=== PATIENT | male | born 1955 | race Caucasian/White ===

== ENCOUNTER → 2016-05-30 | Outpatient (CLI) | payer OTHER ==
[2016-05-30 10:36] LABS: EKG EKG PERFORMED
--- NOTE | 2016-05-30 11:44 | XR ---
EXAMINATION TYPE: XR chest 2V DATE OF EXAM: 05/30/2016 11:22 AM HISTORY: Preoperative clearance. REFERENCE: NONE. FINDINGS: A pain stimulator projects over the lower dorsal spine. There is a moderate levoscoliosis. The lungs are clear. Pleural spaces are clear. Heart size is normal. There is hypertrophic spondylosi s within the dorsal spine. IMPRESSION: 1. NO ACUTE INTRATHORACIC ABNORMALITY. 2. DEGENERATIVE CHANGES, DORSAL SPINE.
[2016-05-30 11:56] LABS: Anion Gap 11 mmol/L; Carbon Dioxide 25 mmol/L (22-30); Chloride 105 mmol/L (98-107); Potassium 4.7 mmol/L (3.5-5.1); Sodium 141 mmol/L (137-145)
[2016-05-30 12:03] LABS: Prothrombin Time 9.9 sec (9.0-12.0)
[2016-05-30 12:05] LABS: Basophils # (A) 0.1 k/uL (0-0.2); Basophils % (A) 1 %; CH 31.7; CHCM 33.8; Eosinophils # (A) 0.3 k/uL (0-0.7); Eosinophils % (A) 3 %; HCT 44.6 % (39.0-53.0); HDW 2.81; HGB 14.8 gm/dL (13.0-17.5); Luc # (Auto) 0.15; Luc % (Auto) 2; Lymphocytes # (A) 2.1 k/uL (1.0-4.8); Lymphocytes % (A) 22 %; MCH 31.3 pg (25.0-35.0); MCHC 33.2 g/dL (31.0-37.0); MCV 94.3 fL (80.0-100.0); Mean Platelet Volume 9.1; Monocytes # (A) 0.5 k/uL (0-1.0); Monocytes % (A) 5 %; Neutrophils # (A) 6.6 k/uL (1.3-7.7); Neutrophils % (A) 68 %; RBC 4.73 m/uL (4.30-5.90); RDW 13.6 % (11.5-15.5); WBC 9.7 k/uL (3.8-10.6); WBC (Perox) 9.73
== END | disposition home or self-care (01) ==
LOC: LABPAT 10:20
PROVIDERS: ATTEND Orthopaedic Surgery
DX: Z01.818 Encounter for other preprocedural examination (principal); Z01.812 Encounter for preprocedural laboratory examination; M17.12 Unilateral primary osteoarthritis, left knee; Z51.81 Encounter for therapeutic drug level monitoring; Z79.01 Long term (current) use of anticoagulants
CPT/HCPCS: 71020; 80051; 85025; 85610; 85730; 87070; 93005

== ENCOUNTER 2016-06-08 06:34 | Inpatient (IN) | payer OTHER ==
[2016-06-06 08:50] VITALS: BMI 26.0
--- NOTE | 2016-06-07 09:49 | HP ---
DATE OF ADMISSION: CHIEF COMPLAINT: Left knee pain. HISTORY OF PRESENT ILLNESS: The patient is a 60-year-old, self-employed male who presents with progressive left knee pain secondary to osteoarthrosis, despite extensive conservative measures. He had a previous arthroscopy. In addition, has had multiple injections and tried multiple medications. He is having pain that limits his normal function and activities. PAST MEDICAL HISTORY: Significant for arthritis. PAST SURGICAL HISTORY: Significant for multiple right shoulder surgeries, in addition to multiple lumbar spine surgeries. He has had a previous nerve stimulator implanted. Current medications include cholesterol medication. He denies drug allergies. Family history is negative. SOCIAL HISTORY: Negative for current tobacco or alcohol use. A 16-point review of systems otherwise reviewed and is noncontributory. On examination, the patient is approximately 6 foot tall, 192 pounds of mesomorphic habitus. HEENT exam is nonfocal. Neck is supple. He is nontender about the lumbar spine. He has painless passive motion of his left hip. Straight leg raise is negative. Active motion left knee, -4 to 135 degrees of flexion. He has a trace effusion. He is tender about the medial joint line. Collaterals are stable, Stanley is negative, Genny's elicits medial pain. He has genu varum alignment. His distal neurovascular exam appears to be intact in the left lower extremity. Previous x-rays to include weight-bearing, notch, lateral, and merchant views of the left knee obtained in the office show moderate to severe medial compartment osteoarthrosis. IMPRESSION: Left knee severe medial compartment osteoarthrosis. RECOMMENDATIONS: I talked to the patient at length regarding his treatment options. At this point, he is having significant pain and limitation because of pain related to his osteoarthrosis. After thorough discussion, he opts to proceed with surgery. We will plan to proceed with potential left knee medial compartment arthroplasty versus total knee arthroplasty. Risks and benefits are discussed at length in layman's terms. We will institute DVT prophylaxis postoperatively.
[~2016-06-08 06:34] MED LIST: ACETAMINOPHEN TAB 500 MG TAB PO ONE; DEXAMETHASONE SOD PHOSPHATE 10 MG/ML 1 ML VIAL IV ONE; MELOXICAM 7.5 MG TAB PO ONE; MIDAZOLAM 2 MG/2 ML VIAL IV PRN; ONDANSETRON 4 MG/2 ML VIAL IVP ONE; SCOPOLAMINE 1.5MG/72HR PATCH TRANSDERM ONE; TRANEXAMIC ACID 1,000 MG in SODIUM CHLORIDE 0.9% 100 ML IVPB ONE; ceFAZolin 2 GM in SODIUM CHLORIDE 0.9% 100 ML IVPB ONE; fentaNYL (PF) 50 MCG/ML 2 ML AMP IV PRN
[2016-06-08] MEDS: LACTATED RINGERS 1,000 ML IV SCH ×2 (07:19→23:22)
[2016-06-08] MEDS ORDERED: fentaNYL (PF) 50 MCG/ML 2 ML AMP IV ONE (07:20)
[2016-06-08] MEDS ORDERED: MIDAZOLAM 2 MG/2 ML VIAL IVP ONE (07:25)
[2016-06-08] MEDS ORDERED: ROPIVACAINE 1,100 MG, SODIUM CHLORIDE 0.9% 330 ML MISCELLANE PRN ×2 (07:51)
--- NOTE | 2016-06-08 07:51 | P.ONQ ---
Anesthesiology Proc Note - PNB - Peripheral Nerve Block Performed Left Adductor Canal Infusion Time Out Performed: Yes Procedure Start Time: :20 Procedure Stop Time: 07:30 Indication: Acute Post-Operative Pain, Analgesia Sedation Type: Sedate with meaningful contact maintained Preparation: Sterile Dressing Position: Supine Catheter Depth at Skin (cm): 8 Catheter: Indwelling Needle Types: On-Q Needle Size: 100mm (4") Needle Gauge: 18 Technique: Ultrasound Injectate: 0.5% Ropivacaine (see comment for volume) Blood Aspirated: No Pain Paresthesia on Injection Noted: No Resistance on Injection: Normal Events: Uneventful and Well Tolerated
[2016-06-08] MEDS ORDERED: SUCCINYLCHOLINE CHLORIDE 100 MG/5 ML SYR IV ONE (08:00)
[2016-06-08] MEDS ORDERED: LIDOCAINE 1% INJ 10MG/ML (20 ML MDV) ONE (08:00)
[2016-06-08] MEDS ORDERED: ROCURONIUM BROMIDE 10 MG/ML 10 ML VIAL IV ONE (08:00)
[2016-06-08] MEDS ORDERED: GLYCOPYRROLATE 0.2 MG/ML 2 ML VIAL ONE (08:00)
[2016-06-08] MEDS ORDERED: MIDAZOLAM 2 MG/2 ML VIAL ONE (08:00)
[2016-06-08] MEDS ORDERED: fentaNYL (PF) 50 MCG/ML 2 ML AMP ONE (08:00)
[2016-06-08] MEDS ORDERED: PROPOFOL 10 MG/ML 20 ML VIAL IV ONE (08:00)
[2016-06-08] MEDS ORDERED: NEOSTIGMINE 1 MG/ML 10 ML VIAL ONE (08:00)
[2016-06-08] MEDS ORDERED: ePHEDrine 50 MG/ML 1 ML AMP ONE (08:00)
[2016-06-08] MEDS ORDERED: ceFAZolin 3,000 MG in SODIUM CHLORIDE 0.9% IRRIGATIO 3,000 ML IRRIGATION ONE (08:35)
[2016-06-08] MEDS ORDERED: LACTATED RINGERS 1,000 ML IV ONE ×2 (08:36→10:00)
[2016-06-08] MEDS ORDERED: ROPIVACAINE 246.25 MG, EPINEPHrine 0.5 MG, KETOROLAC 30 MG, cloNIDine HCL/PF 80 MCG, WA... MISCELLANE ONE ×5 (08:46)
[2016-06-08] MEDS ORDERED: ONDANSETRON 4 MG/2 ML VIAL IVP PRN (09:56)
[2016-06-08] MEDS ORDERED: MAGNESIUM HYDROXIDE 2,400 MG/10 ML CUP PO PRN (09:56)
[2016-06-08] MEDS ORDERED: NALOXONE 0.4 MG/ML 1 ML VIAL IV PRN (09:56)
[2016-06-08] MEDS ORDERED: HYDROmorphone 1 MG/ML 1 ML SYRINGE IVP PRN ×2 (09:56)
[2016-06-08] MEDS ORDERED: traMADol 50 MG TAB PO PRN (09:56)
[2016-06-08] MEDS ORDERED: oxyCODONE-APAP 7.5-325MG 1 EACH TAB PO PRN (09:59)
--- NOTE | 2016-06-08 10:01 | P.DS ---
Providers Date of admission: 06/08/16 06:34 Attending physician: Kevin Ramírez Consults: 06/08/16 09:56 Consult Physician Routine Consulting Provider: Mario Nelson Consult Reason/Comments: Medical management Do you want consulting provider notified?: Yes Primary care physician: Mario Nelson Hospital Course: Date of admission: 06/08/2016 Date of discharge: 06/09/2016 Admission diagnosis: Status post left total knee arthroplasty Discharge diagnosis: Same Attending physician: Dr. Ramírez Surgical procedures: Left total knee arthroplasty Brief history: Patient is a 60-year-old male with a history of progressive primary left knee osteoarthritis. At this point patient has failed conservative treatment measures and has opted to proceed with a elective left total knee arthroplasty. Hospital course: Details of patient's surgery can be found in operative report. Patient tolerated the procedure well and was subsequently transported to orthopedic floor. Patient's orthopeidc and medical care was provided daily. Patient had daily laboratory tests performed for evaluation of overall blood counts. Patient had daily physical therapy to include strengthening range of motion as well as education with walker ambulation. Patient had daily CPM usage as part of their physical therapy program Patient was treated with Xarelto for their postoperative DVT prophylaxis during their inpatient stay. Patient was noted to have a relatively uneventful postoperative course. Patient reported satisfactory pain control with oral pain medications by postoperative day 0. Patient showed satisfactory progress with physical therapy. Patient moved steadily through the program and had no difficulty meeting the goals by postoperative day 1. Given patient's otherwise satisfactory course and having met physical therapy goals, plan is to discharge patient [home] on postoperative day 1. Discharge condition/disposition: Patient will be discharged home in stable condition. Discharge medications: Instructions are given on resumption of patient's normal daily medications per primary care recommendation, in addition patient will be prescribed Percocet 7.5mg/325mg, aspirin 650mg Discharge instructions: 1. Wound care and infection precautions keep incision dry and covered while showerin, no lotions, creams, moisturizers. No soaking, tubs, pools, hottubs. Do not scrub over the incision. 2. Weight-bear as tolerated with walker / cane until follow-up. 3. Ice and elevate when necessary. Do not exceed 20 minutes per hour with ice pack. 4. Utilize compression sleeve until seen at first follow up appointment. 5. Visiting nursing care. 6. Home physical therapy including home CPM. 7. Pain meds and anticoagulants per prescription. 8. Pain medication has potential to cause constipation. Increase oral fluid and fiber intake. Contact primary care provider if you have not had a bowel movement within 48 hours after discharge 9. No anti-inflammatory medication until discussed at first post operative visit, this including Motrin, Aleve, Mobic, Diclofenac. 10. Follow up in office at 2 weeks postop with Jose Rojas PA-C 11. Follow up with your primary care doctor 7-10 days after discharge. 12. Contact [facility] with any questions, . Procedures: Left total knee arthroplasty Patient Condition at Discharge: Good Plan - Discharge Summary New Discharge Prescriptions: Aspirin EC [Ecotrin] 650 mg PO BID #60 tablet. oxyCODONE-APAP 7.5-325MG [Percocet 7.5-325 mg] 1 tab PO Q6HR PRN #60 tab PRN Reason: Pain Discharge Medication List Atorvastatin [Lipitor] 20 mg PO HS 06/06/16 [History] oxyCODONE-APAP 7.5-325MG [Percocet 7.5-325 mg] 1 tab PO Q6HR PRN #60 tab [Rx] Aspirin EC [Ecotrin] 650 mg PO BID #60 tablet. 06/09/16 [Rx] Follow up Appointment(s)/Referral(s): Marty Rojas PAC [PHYSICIAN GYRO MECHANIC] - 2 Weeks (Office is currently closed, please call to make an appointment on Saturday) Patient Instructions/Handouts: Knee Replacement (DC) Activity/Diet/Wound Care/Special Instructions: Orthopedic Discharge Instructions: 1. Wound care and infection precautions, keep incision dry and covered while showering, no lotions, creams, moisturizers. No soaking, pools, hot tubs. Do not scrub over incision. 2. Weight-bear as tolerated with walker / cane until follow-up. 3. Ice and elevate when necessary. Do not exceed 20 minutes per hour with ice pack. 4. Utilize compression sleeve until seen at first follow up appointment. 5. Visiting nursing care. 6. Home physical therapy including home CPM. 7. Pain meds and anticoagulants per prescription. 8. Pain medication has potential to cause constipation. Increase oral fluid and fiber intake. Contact primary care provider if you have not had a bowel movement within 48 hours after discharge. 9. No anti-inflammatory medication until discussed at first post operative visit, this including Motrin, Aleve, Mobic, Diclofenac. 10. Follow up in office at 2 weeks postop with Jose Rojas PA-C 11. Follow up with your primary care doctor 7-10 days after discharge. 12. Contact [facility] with any questions, . Discharge Disposition: HOME WITH HOME HEALTH SERVICES
--- NOTE | 2016-06-08 10:32 | P.OP ---
Date of Procedure: 06/08/16 Preoperative Diagnosis: Left knee severe tricompartmental osteoarthrosis Postoperative Diagnosis: Same Procedure(s) Performed: Left total knee arthroplasty-cruciate retaining-cemented Implants: Depuy Attune size 8 cemented femoral component, size 8 cemented tibial component , 9 mm articular surface, 38 mm cemented patellar component. This is a cruciate retaining implant. Anesthesia: GETA, regional, local Surgeon: Kevin Ramírez Commercial Illustrator #1: Marty Rojas Estimated Blood Loss (ml): 100 Pathology: other (Bone fragments) Condition: stable Disposition: PACU Indications for Procedure: The patient is a 60-year-old male presents with progressive left knee pain secondary to osteoporosis despite extensive conservative treatment. A discussion of the risks and benefits of continued conservative measures versus operative intervention was made with patient. He opted to proceed with surgery. Operative risks to include infection, neurovascular injury, development of blood clots, possible component loosening, possible component failure need for subsequent procedures was discussed. Operative options to include medial compartment arthroplasty versus total knee posterior was also discussed. I informed him this would be an intraoperative decision. Operative Findings: Severe medial compartment osteoarthrosis with grade 2/3 chondral changes involving the distal lateral femur and grade 3 chondral changes involving the medial patella facet. Description of Procedure: The patient was brought to the operating room, and after induction of general anesthesia the left lower extremity was prepped and draped in a normal fashion. The tourniquet was inflated to 270 mmHg. A longitudinal incision extending 3 finger breaths above the superior pole of the patella extending to the medial aspect the tibial tubercle was then made. The skin and subcutaneous tissues were divided sharply. Electrocautery was used for hemostasis. A medial parapatellar arthrotomy was performed. The medial soft tissues to include the superficial deep portions medial collateral ligament were elevated subperiosteally. The patella was everted and the knee flexed. I then inspected all 3 compartments. There was severe grade 3/4 chondral changes involving the medial compartment in addition to grade 2/3 chondral changes involving the lateral compartment and grade 3 chondral changes involving the patellofemoral articulation. It was elected to proceed with total knee arthroplasty at this point. The anterior cruciate ligament was sacrificed. Blunt retractors were placed. A starting hole was made in the distal femur 1 cm anterior to posterior cruciate ligament origin. An intramedullary guide was gently inserted planning on 5 valgus distal cut with 9 mm distal resection. The cutting block was pinned in place. The distal cut was then made. The posterior referencing sizing guide was utilized. 3 external rotation was built into the system and verified off the trans-epicondylar axis and the posterior condyles. I felt size 8 was most appropriate. The cutting block was pinned in place. The anterior, posterior, and chamfer cuts were then made. The bone fragments were removed. The guide was then utilized to perform a slot cut. The trial size a femoral component was placed and was fully seated. There was good anterior to posterior and medial to lateral fit. The distal peg holes were drilled. The trial component was removed. Attention was then paid towards preparing the proximal tibia. An extra medullary guide was utilized in line with the tibial shaft and second metatarsal distally. I planned on 7 of posterior slope. I planned on 2 mm resection from the medial compartment. The cutting block was pinned in place. The posterior cruciate ligament was protected with a retractor. The proximal tibial cut was made in the bone removed in one fragment. After resection I felt this was inadequate therefore an additional 2 mm was resected utilizing the cutting block. The tibia sized most appropriate size 8. The trial femoral and tibial components were placed along with a 9 mm articular surface. I was able to obtain full flexion and extension with good stability with varus and valgus stress. The remnants the medial and lateral menisci were excised the capsule junction. After several flexion and extension cycles, the tibial rotation was marked with electrocautery in line with the medial one third of the tibial tubercle. Attention was then paid towards preparing the patella. A patella reamer was utilized taking this down to 14 mm of bone stock. A good flush cut was made. The patella sized most appropriately 38 mm. The peg holes were drilled. The trial components placed. The knee was taken through range of motion. I had good patellofemoral tracking with no hands technique. The trial components were then removed. The posterior osteophytes off the distal femur were carefully removed with a curved osteotome. The tibia was prepared in the appropriate rotation with appropriate drill and keel punch. The flexion and extension gaps were checked and felt to be symmetric. The bony surfaces were prepared with pulsatile lavage and dried. Ropivacaine was injected into the soft tissues. The tibial component was then cemented in placed and was fully seated. Excess cement was removed. The femoral component was cemented in placed and was fully seated. Excess cement was removed. The trial 9 mm articular surface was placed and the knee was put in full extension. The patella component was cemented in placed and was fully seated. Excess cement was removed. After the cement had sufficiently hardened, the knee was again taken through range of motion. Again I was able to obtain full flexion and extension with good stability with varus valgus stress. The trial 9 mm articular surface was removed and the final one inserted. This was fully seated. Care was taken to avoid any soft tissue interposition. Pulsatile lavage was again utilized. The medial parapatellar arthrotomy was closed with # 2 Ethibond suture. The tourniquet was deflated with approximately 70 minutes total tourniquet time. Final hemostasis was obtained with electrocautery. A deep drain was placed exiting laterally. The subcu tissues were reapproximated with interrupted 2-0 Vicryl sutures. The skin was reapproximated with 3-0 subcuticular strata fix suture. Skin tape and adhesive was applied. A sterile dressing was applied. The patient was awoken from general anesthesia and transferred to the recovery room in good condition. Blood loss was estimated at 100 mL. No complications were incurred. Sponge and needle counts were correct at the end the case.
[2016-06-08] MEDS ORDERED: HYDROmorphone 1 MG/ML 1 ML SYRINGE IVP ONE (10:56)
--- NOTE | 2016-06-08 11:42 | XR ---
EXAMINATION TYPE: XR knee limited LT DATE OF EXAM ORDERED: 06/08/2016 10:50 AM HISTORY: Left knee arthroplasty. COMPARISON: None. FINDINGS: A left knee arthroplasty has been performed. Prosthetic elements appear in good position. One surgical drain is in place. IMPRESSION: STATUS POST LEFT ARTHROPLASTY.
[2016-06-08] MEDS: ceFAZolin 2 GM in SODIUM CHLORIDE 0.9% 100 ML IVPB SCH ×2 (17:55→23:21)
[2016-06-08] MEDS: oxyCODONE-APAP 7.5-325MG 1 EACH TAB PO PRN (20:03)
--- NOTE | 2016-06-08 20:45 | CONS ---
DATE OF CONSULTATION: REASON FOR CONSULTATION: Management of chronic medical conditions. HISTORY OF PRESENT ILLNESS: This is a 60-year-old gentleman who has had issues with his left knee. He failed multiple conservative measures. Comes into the hospital for elective left knee replacement. Patient is seen postoperatively. Denies having any fevers, chills, chest pain, difficulty in breathing, nausea, vomiting, abdominal pain, urinary urgency or frequency. The patient states that his pain is well controlled. Patient denies having any significant past medical history. PAST MEDICAL HISTORY: As stated, remote history of dyslipidemia. PAST SURGICAL HISTORY: 1. Multiple arthroscopies. 2. Multiple ( ) of the left knee. SOCIAL HISTORY: Denies alcohol use, illicit drug use or tobacco use. REVIEW OF SYSTEMS: Fourteen-point review of systems was done; none pertinent other than above-mentioned. MEDICATIONS: As noted. ALLERGIES: MORPHINE. PHYSICAL EXAM: Vitals were reviewed and were within normal limits. GENERALLY: Patient appears to be alert, oriented x3. HEENT: The pupils are equal and reactive to light and accommodation. HEART: S1, S2 present. No murmur appreciated. LUNGS: Good air entry. No wheezing or rhonchi noted. ABDOMINAL EXAM: Soft, nontender, no organomegaly appreciated. GENITOURINARY: No Martinez in place. EXTREMITIES: Pulses can be palpated distally. Left knee bandage is noted with a drain that is appreciated. SKIN: On a gross skin exam does not appear to have any purpura or any skin rashes that were noted. NEUROLOGICALLY: Grossly cranial nerves 2-12 intact. No motor or sensory deficits noted. ASSESSMENT AND PLAN: 1. Severe osteoarthritis of the left knee, status post replacement. 2. Remote history of dyslipidemia. PLAN: Patient is medically stable. Blood pressure is appropriate. I agree with plans for anticoagulation with Xarelto. Thank you for the consultation. Will follow the patient along with you.
[2016-06-08] MEDS ORDERED: SENNOSIDES-DOCUSATE SODIUM 1 EACH TAB PO SCH (21:00)
[2016-06-09] MEDS: oxyCODONE-APAP 7.5-325MG 1 EACH TAB PO PRN ×2 (04:29→11:02)
[2016-06-09 07:12] LABS: Basophils % (A) 0 %; CH 31.3; CHCM 33.3; Eosinophils # (A) 0.1 k/uL (0-0.7); Eosinophils % (A) 1 %; HCT 35.6 % (39.0-53.0); HDW 2.74; Luc # (Auto) 0.17; Luc % (Auto) 1; Lymphocytes # (A) 1.8 k/uL (1.0-4.8); Lymphocytes % (A) 14 %; MCH 31.9 pg (25.0-35.0); MCHC 33.8 g/dL (31.0-37.0); MCV 94.4 fL (80.0-100.0); Mean Platelet Volume 8.3; Monocytes # (A) 0.6 k/uL (0-1.0); Monocytes % (A) 5 %; Neutrophils # (A) 10.5 k/uL (1.3-7.7); Neutrophils % (A) 79 %; RBC 3.77 m/uL (4.30-5.90); RDW 13.8 % (11.5-15.5); WBC 13.2 k/uL (3.8-10.6); WBC (Perox) 14.59
[2016-06-09 08:52] VITALS: BP 116/69; PULSE 78; RESP 16; TEMP 97.8
[2016-06-09] MEDS ORDERED: FAMOTIDINE 20 MG TAB PO SCH (09:00)
[2016-06-09] MEDS ORDERED: RIVAROXABAN 10 MG TAB PO SCH (09:00)
--- NOTE | 2016-06-09 09:15 | P.PN ---
Progress Note - Text This is a 60-year-old gentleman status post knee replacement postop day #1. The patient has adequate canal catheter placed for postoperative pain control. His pain today ranges between 4-6, however he describes his pain as well tolerated.
--- NOTE | 2016-06-09 10:48 | P.PN ---
Progress Note - Text S: The patient has no complaints. They deny shortness of breath or chest pain. O: Afebrile, vital signs stable Homans negative right lower extremity Distal neurovascular status intact in the operative extremity Incision clean, dry , and intact A/P: Postoperative day 1 status post right total knee arthroplasty Medical management DVT prophylaxis with aspirin 325 mg, 2 tablets twice daily. Discharge planning Anticipated discharge home this afternoon after therapy.
== END 2016-06-09 14:06 | disposition home health service (06) | DRG 470 ==
LOC: 2ORMAIN 06:34 → 3SUR 10:41
PROVIDERS: ADMIT Orthopaedic Surgery; ATTEND Orthopaedic Surgery
PROC: 0SRD0J9 Replacement of Left Knee Joint with Synthetic Substitute, Cemented, Open Approach (ICD-10-PCS; principal; 2016-06-08 08:00)
DX: M17.12 Unilateral primary osteoarthritis, left knee (principal); M21.162 Varus deformity, not elsewhere classified, left knee; M81.0 Age-related osteoporosis without current pathological fracture; E78.5 Hyperlipidemia, unspecified; Z79.899 Other long term (current) drug therapy
CPT/HCPCS: 85025; 88300

== ENCOUNTER → 2019-11-26 | Outpatient (CLI) | payer OTHER ==
--- NOTE | 2019-11-26 08:15 | CTL ---
EXAMINATION TYPE: CT Low Dose Lung DATE OF EXAM ORDERED: 11/26/2019 HISTORY: . Lung cancer screening CT DLP: 99.[address] CTDI: 2.7 mGy Automated exposure control for dose reduction was used. SCREENING VISIT: COMPARISON: None TECHNIQUE: Low dose computed tomography scan was performed through the chest at 1 mm thick sections a nd reconstructed images in the coronal plane at [address] DIAGNOSTIC QUALITY: Satisfactory FINDINGS: LUNG NODULES: 1. There is a 4 mm nodule within the right upper lobe image 158. 2. There is a 2 mm calcified nodule in the left upper lobe LUNGS: Mild diffuse emphysematous changes. No consolidation, pleural effusion or pneumothorax. No diagnostic evidence of chronic interstitial lung disease. No pathologic adenopathy. Coronary artery calcificati on noted. Linear changes involving the lung bases are most typical scar or atelectasis PLEURAL SPACE: Effusion: None Calcification: None Thickening: None Pneumothorax: None HEART: Heart size is normal with no pericardial effusion. There is dense coronary artery atherosclerotic calin nges correlate clinically. Atherosclerotic change aorta. No evidence of aneurysm. Tiny pericardial ef fusion noted. OTHER FINDINGS: Hypertrophic and degenerative changes of the spine there appears to be a stimulator device or cathete r within the spinal canal. IMPRESSION: 1. COPD with some 5 mm nodules too small to characterize as discussed above. 2. There is dense coronary artery calcification correlate clinically. FOLLOW UP CT CHEST RECOMMENDATION: Annual screening [address] LUNG RAD: Lung-Rad 2 Benign Appearance or Behavior
== END | disposition home or self-care (01) ==
LOC: RADCTMAIN 06:52
PROVIDERS: ATTEND Family Medicine
DX: Z12.2 Encounter for screening for malignant neoplasm of respiratory organs (principal); J44.9 Chronic obstructive pulmonary disease, unspecified; R91.8 Other nonspecific abnormal finding of lung field; I25.10 Atherosclerotic heart disease of native coronary artery without angina pectoris; F17.210 Nicotine dependence, cigarettes, uncomplicated

== ENCOUNTER → 2020-11-18 | Outpatient (CLI) | payer OTHER ==
[2020-11-18 09:49] LABS: Basophils % (A) 0 %; Eosinophils # (A) 0.2 k/uL (0-0.7); Eosinophils % (A) 2 %; HGB 14.1 gm/dL (13.0-17.5); Lymphocytes # (A) 1.6 k/uL (1.0-4.8); Lymphocytes % (A) 24 %; MCH 31.4 pg (25.0-35.0); MCHC 32.8 g/dL (31.0-37.0); MCV 95.8 fL (80.0-100.0); Monocytes # (A) 0.3 k/uL (0-1.0); Monocytes % (A) 5 %; Neutrophils # (A) 4.4 k/uL (1.3-7.7); Neutrophils % (A) 67 %; Platelet Count 166 k/uL (150-450); RBC 4.49 m/uL (4.30-5.90); RDW 13.5 % (11.5-15.5); WBC 6.6 k/uL (3.8-10.6)
[2020-11-18 09:57] LABS: Prothrombin Time 10.5 sec (9.0-12.0)
[2020-11-18 09:58] LABS: Potassium 4.1 mmol/L (3.5-5.1)
== END | disposition home or self-care (01) ==
LOC: LABWHC1 08:31
PROVIDERS: ATTEND Orthopaedic Surgery
DX: Z01.812 Encounter for preprocedural laboratory examination (principal); M16.12 Unilateral primary osteoarthritis, left hip; Z22.322 Carrier or suspected carrier of Methicillin resistant Staphylococcus aureus
CPT/HCPCS: 36415; 80051; 85025; 85610; 93005

== ENCOUNTER → 2020-11-24 | Outpatient (CLI) | payer OTHER | END | disposition home or self-care (01) | LOC: LABPAT 11:19 | PROVIDERS: ATTEND Orthopaedic Surgery | DX: Z01.812 Encounter for preprocedural laboratory examination (principal); M16.12 Unilateral primary osteoarthritis, left hip | CPT/HCPCS: 87070 ==

== ENCOUNTER 2020-11-28 06:22 | Day surgery (SDC) | payer OTHER ==
[2020-11-24 09:31] VITALS: BMI 24.9
--- NOTE | 2020-11-27 12:48 | HP ---
HISTORY AND PHYSICAL HISTORY: Jay Westbrook is a 65-year-old gentleman seen with symptomatic left hip osteoarthritis. After having treatment options discussed, he elected to proceed with direct anterior left total hip arthroplasty. Consent regarding the procedure was obtained. PAST MEDICAL HISTORY: Hyperlipidemia, asthma. PAST SURGICAL HISTORY: Left total knee arthroplasty, lumbar spine surgery. MEDICATIONS: Atorvastatin. ALLERGIES: NONE. SOCIAL HISTORY: Denies current tobacco use. PHYSICAL EXAMINATION: Evaluation of the left hip, he is a very limited range of motion with severe pain and diffuse tenderness about the hip girdle. Positive impingement sign. Straight leg raise negative. Distal neurovascular exam intact. RADIOGRAPHS: Left hip radiographs reveal severe osteoarthritic changes. IMPRESSION: 1. Left hip osteoarthritis. 2. Hyperlipidemia. PLAN: Direct anterior left total hip arthroplasty. MMODL / IJN: [id number] /
[~2020-11-28 06:22] MED LIST changes: -ACETAMINOPHEN TAB 500 MG TAB PO ONE; +ACETAMINOPHEN TAB 500 MG TAB PO PRN; -DEXAMETHASONE SOD PHOSPHATE 10 MG/ML 1 ML VIAL IV ONE; +DEXAMETHASONE SOD PHOSPHATE 4 MG/ML 1 ML VIAL IV ONE; +LACTATED RINGERS 1,000 ML IV SCH; -MELOXICAM 7.5 MG TAB PO ONE; +MELOXICAM 7.5 MG TAB PO PRN; +ROPIVACAINE/EPI/CLONIDINE/KET 50 ML SYRINGE MISCELLANE PRN; -TRANEXAMIC ACID 1,000 MG in SODIUM CHLORIDE 0.9% 100 ML IVPB ONE; +TRANEXAMIC ACID 1,000 MG in SODIUM CHLORIDE 0.9% 100 ML IVPB PRN; -ceFAZolin 2 GM in SODIUM CHLORIDE 0.9% 100 ML IVPB ONE; -fentaNYL (PF) 50 MCG/ML 2 ML AMP IV PRN
[2020-11-28] MEDS ORDERED: fentaNYL (PF) 50 MCG/ML 2 ML AMP IV PRN (07:00)
[2020-11-28] MEDS ORDERED: ROCURONIUM 10 MG/ML (5 ML VIAL) IV ONE (07:22)
[2020-11-28] MEDS ORDERED: SUCCINYLCHOLINE CHLORIDE 100 MG/5 ML SYR IV ONE (07:22)
[2020-11-28] MEDS ORDERED: ePHEDrine SULFATE/0.9% NACL/PF 50 MG/5 ML SYRINGE IV ONE (07:22)
[2020-11-28] MEDS ORDERED: LIDOCAINE 1% INJ 10MG/ML (20 ML MDV) ONE (07:22)
[2020-11-28] MEDS ORDERED: fentaNYL (PF) 50 MCG/ML 2 ML AMP ONE (07:22)
[2020-11-28] MEDS ORDERED: PHENYLEPHRINE-0.9% NACL SYG 1,000 MCG/10 ML SYRINGE ONE (07:22)
[2020-11-28] MEDS ORDERED: MIDAZOLAM 2 MG/2 ML VIAL ONE (07:22)
[2020-11-28] MEDS ORDERED: SODIUM CHLORIDE 0.9% 100 ML BAG ONE (07:22)
[2020-11-28] MEDS ORDERED: TRANEXAMIC ACID 1,000 MG/10 ML VIAL ONE (07:22)
[2020-11-28] MEDS ORDERED: HYDROmorphone (PF) 1 MG/ML ONE (07:22)
[2020-11-28] MEDS ORDERED: GLYCOPYRROLATE 0.2 MG/ML 2 ML VIAL ONE (07:22)
[2020-11-28] MEDS ORDERED: NEOSTIGMINE 1 MG/ML 10 ML VIAL ONE (07:22)
[2020-11-28] MEDS ORDERED: PROPOFOL 10 MG/ML 20 ML VIAL IV ONE (07:22)
[2020-11-28] MEDS ORDERED: ceFAZolin 1,000 MG in SODIUM CHLORIDE 0.9% 1,000 ML IRRIGATION ONE (08:01)
[2020-11-28] MEDS ORDERED: HYDROmorphone 0.2 MG/1 ML SYRINGE IM PRN (09:12)
[2020-11-28] MEDS ORDERED: NALOXONE 0.4 MG/ML 1 ML VIAL IV PRN (09:12)
[2020-11-28] MEDS ORDERED: LACTATED RINGERS 1,000 ML IV ONE ×3 (09:12→10:14)
[2020-11-28] MEDS ORDERED: HYDROcodone/APAP 5-325MG 1 EACH TAB PO PRN ×2 (09:12)
[2020-11-28] MEDS ORDERED: ONDANSETRON 4 MG/2 ML VIAL IVP PRN (09:12)
[2020-11-28] MEDS ORDERED: HYDROmorphone 0.5 MG/0.5 ML SYRINGE IVP PRN ×2 (09:12)
--- NOTE | 2020-11-28 09:12 | P.OP ---
Date of Procedure: 11/28/20 Preoperative Diagnosis: Left hip osteoarthritis Postoperative Diagnosis: Left hip osteoarthritis Procedure(s) Performed: Direct anterior left total hip arthroplasty Implants: 1. Depuy Corail size 13 125 standard collar press-fit femoral stem 2. Depuy pinnacle 60 mm press-fit acetabular shell 3. Depuy pinnacle +4 neutral polyethylene acetabular liner 4. Depuy 36 mm -2 metal femoral head Anesthesia: ASHLEYA, local Surgeon: Richar Gerard Art Specialist #1: Aldo Lpoez Estimated Blood Loss (ml): 85 Pathology: other (Femoral head) Condition: stable Disposition: PACU Indications for Procedure: 65-year-old patient seen with symptomatic left hip osteoarthritis. After treatment options were discussed, he elected to proceed with direct anterior left total hip arthroplasty. Operative Findings: See description of procedure Description of Procedure: The patient was taken to the operative suite. Patient underwent a general anesthetic by the department of anesthesia. Patient was then transferred to the [place] table. Patient was given preoperative IV antibiotics and TXA. Both lower extremities were placed in standard leg spars. The hip was then prepped and draped in the normal sterile orthopedic fashion. A standard anterior incision was made beginning 3 cm lateral and 1 cm distal to the ASIS extending 10 cm. Dissection was then carried down through the subcutaneous soft tissues down to the fascia overlying the tensor fascia glen. An incision was now made through the fascia. Careful dissection was taken down exposing the tensor fascia glen muscle. A Cobra retractor was now placed along the medial femoral neck and a second one along the lateral femoral neck. The venous circumflex vessels were now identified, cauterized and clipped. We identified the anterior hip capsule. An incision was made through the hip capsule along the lateral border. I performed a partial anterior capsulectomy. Retractors were now placed around the femoral neck itself. A femoral neck cut was now made with a sagittal saw. It was completed with an osteotome at the lateral neck area. The femoral head was now removed without difficulty. The extremity was now rotated to 60 of external rotation. It was locked in position. Residual labrum was now debrided out. Serial reaming was performed of the acetabulum while Aldo CONTRERAS assisted holding an anterior retractor for exposure. Once we reached the appropriate size and a trial was position and fit nicely. The appropriate size was now chosen opened and made available. It was introduced into the acetabulum without difficulty. The C-arm/fluoroscopy was now brought into the operative field. We made sure we had a true AP pelvic view. We now under direct C- arm/fluoroscopy introduced into the acetabular component with appropriate version and inclination. I held the cup in appropriate position while Aldo CONTRERAS used a mallet to seat the acetabular component. I noted the component now to be well seated and stable. Acetabular cup introduce her was removed. The C-arm was pulled back. An appropriate liner was introduced and clicked into position. It was felt to be stable. At this point retractors were removed. The extremity was now placed into 140 external rotation with no traction. The leg was now dropped to the ground and adducted. Appropriate retractors were now positioned along the proximal femur. We also placed our femoral look into position. Additional capsular releasing was performed to gain access to the proximal femur. We now used a box osteotome. A canal finder was now utilized. Serial broaching was now performed with the assistance of Aldo CONTRERAS tapping the broaches down with a mallet while held the broach in appropriate rotation and position. This was done until we reached the appropriate size with good overall rotational stability. Appropriate calcar planing was performed. A trial head/neck was placed into position. The hip was now reduced. The C-ar m/fluoroscopy was brought back into the operative field. I obtained an AP pelvis demonstrating reasonable/adequately alignment. I now evaluated the trial components which appeared well positioned appropriately sized. The C- arm/fluoroscopy was pulled back. Retractors were repositioned and the hip was dislocated. The leg was again taken down to the ground and adducted. Appropriate retractors were repositioned as well as the femoral hook. All trial components were removed. The femoral implant was opened along with the femoral head. The femoral implant was introduced on the appropriate handle into our pre-broached area. I held the component position well Aldo CONTRERAS used a mallet to seat the femoral component. The femoral component was now noted to be well seated and stable.. The femoral head was introduced with good positioning and fixation noted. Retractors were now removed. The hip was now reduced. There appeared be good positioning of the hip confirmed on intraoperative fluoroscopy. Spot films were obtained to document this. A second gram of TXA was given. The deep and superficial soft tissues were infiltrated with local analgesic. Bipolar cautery had been utilized intermittently through the procedure for hemostasis. The wound was irrigated copiously with pulse lavage mechanical irrigation. The fascia was repaired with Vicryl suture. The subcutaneous soft tissues were repaired in layers with Vicryl suture. The skin was approximated with pernio/Dermabond. Sterile dressings were applied. Patient was then awakened, transferred to a bed and taken to recovery in stable condition. Aldo CONTRERAS assisted with the complex procedure.
[2020-11-28 09:37] VITALS: TEMP 97.7
[2020-11-28 10:14] VITALS: RESP 16
--- NOTE | 2020-11-28 10:32 | XR ---
EXAMINATION TYPE: XR Hip Limited LT, FL guidance operating room DATE OF EXAM: 11/28/2020 Comparison: 10/12/2020 Clinical History: 65-year-old male LEFT ANTERIOR HIP Findings: Single intraoperative fluoroscopic image demonstrating left hip total arthroplasty. FLUOROSCOPY Fluoroscopy time of 17 seconds was used during anterior left hip replacement. 1 image/s document/s t he procedure. Impression: Intraoperative fluoroscopy as above.
[2020-11-28 12:43] VITALS: BP 114/78; PULSE 76
== END 2020-11-28 13:53 | disposition home health service (06) ==
LOC: OR 06:22
PROVIDERS: ATTEND Orthopaedic Surgery
DX: M16.12 Unilateral primary osteoarthritis, left hip (principal); E78.5 Hyperlipidemia, unspecified; J45.909 Unspecified asthma, uncomplicated; J44.9 Chronic obstructive pulmonary disease, unspecified; Z87.891 Personal history of nicotine dependence; Z79.899 Other long term (current) drug therapy; Z88.5 Allergy status to narcotic agent
CPT/HCPCS: 27130; 97110; 97161; 88300; 73501; C1776; J2250; J1100; J2710; J0690 ×2; J2405; J2001; J3010; J1170; J2370; J0330; J2704; 86850; 86900; 86901

== ENCOUNTER 2020-12-25 18:02 | Observation (INO) | payer OTHER ==
[2020-12-25] MEDS ORDERED: IBUPROFEN 600 MG TAB PO STA (18:33)
[2020-12-25] MEDS ORDERED: ACETAMINOPHEN TAB 500 MG TAB PO STA (18:33)
--- NOTE | 2020-12-25 18:33 | ED ---
General Adult HPI - General Chief complaint: Urogenital Stated complaint: fever, UTI, Side pain, RONNY Time Seen by Provider: 12/25/20 18:32 Source: patient Mode of arrival: wheelchair Limitations: no limitations - History of Present Illness Initial comments: Jay is a 65 -year-old man who presents to the ER today for evaluation of fever, body aches, hematuria or urinary frequency. Patient had a left hip replacement 3 weeks ago. Patient states that over the past couple of days he has had urinary frequency, hematuria as well as diarrhea. Patient's concerned he has a urinary infection. Had fever he's been taking antipyretics at home. Has generalized weakness and myalgias. No pain in the hip, able to ambulate without difficulty, incision is healing well. - Related Data Home Medications Medication Instructions Recorded Confirmed Albuterol Inhaler [Ventolin Hfa 1 puff INHALATION DAILY PRN 11/24/20 12/25/20 Inhaler] Fluticasone/Umeclidin/Vilanter 1 inhalation INHALATION DAILY PRN 11/24/20 12/25/20 [Trelegy Ellipta 100-62.5-25] Allergies Allergy/AdvReac Type Severity Reaction Status Date / Time morphine Allergy Vomiting Verified 12/25/20 21:38 Review of Systems ROS Statement: Those systems with pertinent positive or pertinent negative responses have been documented in the HPI. ROS Other: All systems not noted in ROS Statement are negative. Past Medical History Past Medical History: Hyperlipidemia, Osteoarthritis (OA) Additional Past Medical History / Comment(s): arthritis History of Any Multi-Drug Resistant Organisms: None Reported Past Surgical History: Joint Replacement, Orthopedic Surgery Additional Past Surgical History / Comment(s): Rt shoulder surgery, neuro pain stimulator-back. Past Anesthesia/Blood Transfusion Reactions: Postoperative Nausea & Vomiting (PONV) Past Psychological History: No Psychological Hx Reported Smoking Status: Never smoker Past Alcohol Use History: None Reported Past Drug Use History: Marijuana - Past Family History Mother Family Medical History: No Reported History General Exam - General Exam Comments Initial Comments: Physical Exam GENERAL: Appears dehydrated, ill appearing HENT: Normocephalic, Atraumatic. EYES: PERRL, EOMI PULMONARY: Unlabored respirations. No audible rales rhonchi or wheezing was noted. CARDIOVASCULAR: Tachycardic ABDOMEN: Soft and nontender with normal bowel sounds. SKIN: Well healing surgical incision left hip : Deferred NEUROLOGIC: Patient is alert and oriented x3. Moving all extremities spontaneously MUSCULOSKELETAL: Normal extremities with adequate strength and full range of motion. No lower ex tremity swelling or edema. No calf tenderness. PSYCHIATRIC: Normal psychiatric evaluation. Limitations: no limitations Course Vital Signs 12/25/20 12/25/20 12/25/20 18:17 20:09 22:16 Temperature 99.9 F H 101.2 F H 98.2 F Pulse Rate 114 H 79 66 Respiratory 18 19 18 Rate Blood Pressure 95/59 97/56 90/55 O2 Sat by Pulse 97 96 99 Oximetry EKG Findings - EKG Comments: EKG Findings:: EKG was obtained due to tachycardia, EKG obtained at 1840 rate is 1 and 2 rhythm is sinus tachycardia normal axis normal intervals no acute ST elevations or depressions no evidence of ischemia or infarction Medical Decision Making - Medical Decision Making Sepsis workup initiated Patient unable to provide a urinalysis initially, this delayed the workup however urine was obtained, is consistent with urinary tract infection Given the patient's dehydration, fever, tachycardia urinary tract infection he does meet sepsis criteria he did receive Rocephin he will be admitted Patient care was discussed with Dr. Nolan who accepts the admission - Lab Data Result diagrams: 12/25/20 18:56 12/25/20 18:56 Lab Results 12/25/20 12/25/20 12/25/20 Range/Units 18:56 18:56 18:56 WBC 10.3 (3.8-10.6) k/uL RBC 3.20 L (4.30-5.90) m/uL Hgb 10.1 L D (13.0-17.5) gm/dL Hct 29.2 L (39.0-53.0) % MCV 91.4 (80.0-100.0) fL MCH 31.5 (25.0-35.0) pg MCHC 34.5 (31.0-37.0) g/dL RDW 14.5 (11.5-15.5) % Plt Count 225 (150-450) k/uL MPV 8.0 Neutrophils % 87 % Lymphocytes % 5 % Monocytes % 6 % Eosinophils % 0 % Basophils % 0 % Neutrophils # 8.9 H (1.3-7.7) k/uL Lymphocytes # 0.5 L (1.0-4.8) k/uL Monocytes # 0.6 (0-1.0) k/uL Eosinophils # 0.0 (0-0.7) k/uL Basophils # 0.0 (0-0.2) k/uL PT 10.3 (9.0-12.0) sec INR 1.0 (<1.2) APTT 24.4 (22.0-30.0) sec Sodium 134 L (137-145) mmol/L Potassium 3.7 (3.5-5.1) mmol/L Chloride 101 (98-107) mmol/L Carbon Dioxide 23 (22-30) mmol/L Anion Gap 10 mmol/L BUN 21 H (9-20) mg/dL Creatinine 1.03 (0.66-1.25) mg/dL Est GFR (CKD-EPI)AfAm 89 (>60 ml/min/1.73 sqM) Est GFR (CKD-EPI)NonAf 77 (>60 ml/min/1.73 sqM) Glucose 129 H (74-99) mg/dL Plasma Lactic Acid Ricki (0.7-2.0) mmol/L Calcium 8.7 (8.4-10.2) mg/dL Total Bilirubin 0.5 (0.2-1.3) mg/dL AST 25 (17-59) U/L ALT 18 (4-49) U/L Alkaline Phosphatase 137 H (38-126) U/L Total Protein 5.8 L (6.3-8.2) g/dL Albumin 3.2 L (3.5-5.0) g/dL Urine Color Urine Appearance (Clear) Urine pH (5.0-8.0) Ur Specific Preston (1.001-1.035) Urine Protein (Negative) Urine Glucose (UA) (Negative) Urine Ketones (Negative) Urine Blood (Negative) Urine Nitrite (Negative) Urine Bilirubin (Negative) Urine Urobilinogen (<2.0) mg/dL Ur Leukocyte Esterase (Negative) Urine RBC (0-5) /hpf Urine WBC (0-5) /hpf Urine WBC Clumps (None) /hpf Ur Squamous Epith Cells (0-4) /hpf Urine Bacteria (None) /hpf Urine Mucus (None) /hpf Coronavirus (PCR) (Not Detectd) 12/25/20 12/25/20 12/25/20 Range/Units 18:56 20:55 20:55 WBC (3.8-10.6) k/uL RBC (4.30-5.90) m/uL Hgb (13.0-17.5) gm/dL Hct (39.0-53.0) % MCV (80.0-100.0) fL MCH (25.0-35.0) pg MCHC (31.0-37.0) g/dL RDW (11.5-15.5) % Plt Count (150-450) k/uL MPV Neutrophils % % Lymphocytes % % Monocytes % % Eosinophils % % Basophils % % Neutrophils # (1.3-7.7) k/uL Lymphocytes # (1.0-4.8) k/uL Monocytes # (0-1.0) k/uL Eosinophils # (0-0.7) k/uL Basophils # (0-0.2) k/uL PT (9.0-12.0) sec INR (<1.2) APTT (22.0-30.0) sec Sodium (137-145) mmol/L Potassium (3.5-5.1) mmol/L Chloride (98-107) mmol/L Carbon Dioxide (22-30) mmol/L Anion Gap mmol/L BUN (9-20) mg/dL Creatinine (0.66-1.25) mg/dL Est GFR (CKD-EPI)AfAm (>60 ml/min/1.73 sqM) Est GFR (CKD-EPI)NonAf (>60 ml/min/1.73 sqM) Glucose (74-99) mg/dL Plasma Lactic Acid Ricki 0.9 (0.7-2.0) mmol/L Calcium (8.4-10.2) mg/dL Total Bilirubin (0.2-1.3) mg/dL AST (17-59) U/L ALT (4-49) U/L Alkaline Phosphatase (38-126) U/L Total Protein (6.3-8.2) g/dL Albumin (3.5-5.0) g/dL Urine Color Yellow Urine Appearance Turbid (Clear) Urine pH 5.5 (5.0-8.0) Ur Specific Preston 1.021 (1.001-1.035) Urine Protein 2+ H (Negative) Urine Glucose (UA) Negative (Negative) Urine Ketones Negative (Negative) Urine Blood Large H (Negative) Urine Nitrite Negative (Negative) Urine Bilirubin Negative (Negative) Urine Urobilinogen <2.0 (<2.0) mg/dL Ur Leukocyte Esterase Large H (Negative) Urine RBC 13 H (0-5) /hpf Urine WBC >182 H (0-5) /hpf Urine WBC Clumps Many H (None) /hpf Ur Squamous Epith Cells 1 (0-4) /hpf Urine Bacteria Many H (None) /hpf Urine Mucus Moderate H (None) /hpf Coronavirus (PCR) Not Detected (Not Detectd) Disposition Clinical Impression: Sepsis, UTI (urinary tract infection) Disposition: ADMITTED IP TO THIS [facility] Condition: Stable Is patient prescribed a controlled substance at d/c from ED?: No
[2020-12-25] MEDS: SODIUM CHLORIDE 0.9% 500 ML 500 ML IV SCH ×2 (18:56→21:06)
[2020-12-25] MEDS: SODIUM CHLORIDE 0.9% 1,000 ML IV SCH (18:57)
[2020-12-25 19:13] LABS: Basophils % (A) 0 %; Eosinophils % (A) 0 %; HCT 29.2 % (39.0-53.0); Lymphocytes # (A) 0.5 k/uL (1.0-4.8); Lymphocytes % (A) 5 %; MCH 31.5 pg (25.0-35.0); MCHC 34.5 g/dL (31.0-37.0); MCV 91.4 fL (80.0-100.0); Monocytes # (A) 0.6 k/uL (0-1.0); Monocytes % (A) 6 %; Neutrophils # (A) 8.9 k/uL (1.3-7.7); Neutrophils % (A) 87 %; Platelet Count 225 k/uL (150-450); RDW 14.5 % (11.5-15.5); WBC 10.3 k/uL (3.8-10.6)
[2020-12-25 19:18] LABS: Albumin 3.2 g/dL (3.5-5.0); Calcium 8.7 mg/dL (8.4-10.2); Potassium 3.7 mmol/L (3.5-5.1); Total Bilirubin 0.5 mg/dL (0.2-1.3); Total Protein 5.8 g/dL (6.3-8.2)
[2020-12-25 19:22] LABS: Partial Thromboplastin Time 24.4 sec (22.0-30.0); Prothrombin Time 10.3 sec (9.0-12.0)
[2020-12-25 19:26] LABS: HGB 10.1 gm/dL (13.0-17.5)
[2020-12-25] MEDS ORDERED: NALOXONE 0.4 MG/ML 1 ML VIAL IV PRN (21:40)
[2020-12-25] MEDS ORDERED: IBUPROFEN 400 MG TAB PO PRN (21:40)
[2020-12-25] MEDS ORDERED: ACETAMINOPHEN TAB 325 MG TAB PO PRN (21:40)
--- NOTE | 2020-12-25 21:56 | HP ---
HISTORY AND PHYSICAL CHIEF COMPLAINTS: Fever, rigors and hematuria. HISTORY OF PRESENT ILLNESS: This 65-year-old gentleman with a past medical history of hyperlipidemia, history of DJD, history of orthopedic surgery, being followed by Dr. Nelson in the outpatient setting, recently had left total hip arthroplasty for severe DJD by Dr. Gerard. The patient went home. The patient had hematuria, urinary problems, and subsequently patient was having fever, rigors and chills. The patient was feeling weak and the patient came to [facility] and was admitted for further evaluation. Patient has minimal pain in the left hip area. Patient is able to ambulate. The UA is pending at this time. There is no history of any rigors or chills at this time. The EKG shows sinus tachycardia and non-progression of R-waves also. PAST MEDICAL HISTORY: History of recent left hip arthroplasty, hyperlipidemia, history of DJD. MEDICATIONS: Medications prior to admission: Lyrica, Trelegy, Colace, aspirin, Ventolin. ALLERGIES: MORPHINE. FAMILY HISTORY: No history of heart disease or strokes in the family. SOCIAL HISTORY: Remote history of smoking. No current smoking or alcohol intake. History of THC medical marijuana. REVIEW OF SYSTEMS: ENT: No diminished hearing. No diminished vision. CARDIOVASCULAR SYSTEM: No angina, palpitations. RESPIRATORY SYSTEM: No cough, hemoptysis. GI: No nausea, vomiting, diarrhea. : As mentioned earlier. NERVOUS SYSTEM: No numbness, weakness. ALLERGY/IMMUNOLOGY: No asthma or hay fever. MUSCULOSKELETAL: As mentioned earlier. HEMATOLOGY/ONCOLOGY: No history of anemia. ENDOCRINE: No history of diabetes. CONSTITUTIONAL: As mentioned earlier. DERMATOLOGY: As mentioned earlier. RHEUMATOLOGY: Negative. PSYCHIATRY: As mentioned earlier. PHYSICAL EXAMINATION: Patient is alert, oriented x3. Pulse is 79, blood pressure 97/56, respiration 19, temperature 101.2, pulse ox 96% on room air. HEENT: Conjunctivae normal. Oral mucosa moist. NECK: No jugular venous distention. No carotid bruit. No lymph node enlargement. CARDIOVASCULAR: S1, S2 muffled. No S3. No S4. RESPIRATION: Breath sounds diminished at the bases. A few scattered rhonchi. No crackles. ABDOMEN: Soft, nontender. No mass palpable. LEGS: Movement of the left hip is slightly painful. Otherwise, status post recent left hip surgery and incision is healing well. SKIN: No ulcer, rash, bleeding. JOINTS: No active deforming arthropathy. NERVOUS SYSTEM: Higher functions as mentioned earlier. Moves all 4 limbs. No focal motor or sensory deficit. LYMPHATICS: No lymph node palpable in neck, axillae or groin. LABS: WBC 10.3, hemoglobin 10.1. Sodium 135. ASSESSMENT: 1. Acute urinary tract infection with sepsis, present on admission. 2. Hematuria for evaluation. 3. History of recent left hip arthroplasty for severe degenerative joint disease. 4. Anemia, normocytic anemia of chronic disease. 5. Hyponatremia. 6. Elevated random glucose. 7. History of hyperlipidemia. 8. History of degenerative joint disease. 9. Remote history of nicotine dependence. 10.History of medical marijuana. 11.FULL CODE. RECOMMENDATIONS AND DISCUSSION: In this 65-year-old gentleman who presented with multiple complex medical issues, we will monitor the patient closely, continue the current medications, continue with symptomatic treatment. We will obtain cultures and initiate broad-spectrum IV antibiotics. Resume the home medications once they are confirmed. Covid-19 testing is been sought. I would also recommend orthopedic evaluation. Prognosis guarded because of multiple complex medical issues. Further recommendations to follow. A copy of this dictation is being forwarded to Dr. Nelson, who is the primary physician. SHAINA / YAKOVN: [id number] /
[2020-12-25 21:57] LABS: Appearance,Urine Turbid (Clear); Bacteria,Urine Many /hpf; Bilirubin,Urine Negative (Negative); Blood,Urine Large (Negative); Color,Urine Yellow; Glucose,Urine (UA) Negative (Negative); Ketones,Urine Negative (Negative); Leukocyte Esterase,Urine Large (Negative); Mucus,Urine Moderate /hpf; Nitrite,Urine Negative (Negative); PH, Urine 5.5 (5.0-8.0); Protein,Urine 2+ (Negative); RBC,Urine 13 /hpf (0-5); Specific Gravity,Urine 1.021 (1.001-1.035); Squamous Epithelial Cell,Urine 1 /hpf (0-4); Urobilinogen,Urine <2.0 mg/dL (<2.0); WBC,Urine >182 /hpf (0-5)
[2020-12-25] MEDS ORDERED: SODIUM CHLORIDE 0.9% 500 ML 500 ML IV ONE (23:34)
[2020-12-26 00:25] LABS: Glucose,Whole Blood 189 mg/dL (75-99)
[2020-12-26] MEDS ORDERED: SODIUM CHLORIDE 0.9% 1,000 ML IV ONE (00:33)
[2020-12-26] MEDS ORDERED: MAG HYDROX/AL HYDROX/SIMETH 30 ML CUP PO PRN (01:26)
[2020-12-26] MEDS ORDERED: ONDANSETRON 4 MG/2 ML VIAL IVP STA (01:26)
[2020-12-26] MEDS ORDERED: SODIUM CHLORIDE 0.9% 500 ML 500 ML IV ONE (03:08)
[2020-12-26] MEDS: SODIUM CHLORIDE 0.9% 1,000 ML IV SCH ×3 (03:18→17:24)
[2020-12-26 07:26] LABS: Basophils % (A) 0 %; Eosinophils # (A) 0.1 k/uL (0-0.7); Eosinophils % (A) 2 %; HCT 27.1 % (39.0-53.0); HGB 8.9 gm/dL (13.0-17.5); Hypochromasia Moderate; Lymphocytes # (A) 0.8 k/uL (1.0-4.8); Lymphocytes % (A) 15 %; MCH 31.6 pg (25.0-35.0); MCHC 32.9 g/dL (31.0-37.0); MCV 96.1 fL (80.0-100.0); Mean Platelet Volume 8.8; Monocytes # (A) 0.4 k/uL (0-1.0); Monocytes % (A) 6 %; Neutrophils # (A) 4.3 k/uL (1.3-7.7); Neutrophils % (A) 74 %; Platelet Count 152 k/uL (150-450); Poikilocytosis Slight; RBC 2.82 m/uL (4.30-5.90); RDW 14.8 % (11.5-15.5); WBC 5.8 k/uL (3.8-10.6)
[2020-12-26 07:46] LABS: African American GFR (CKD) >90 (>60 ml/min/1.73 sqM); Anion Gap 5 mmol/L; Blood Urea Nitrogen 16 mg/dL (9-20); Calcium 7.9 mg/dL (8.4-10.2); Carbon Dioxide 23 mmol/L (22-30); Chloride 111 mmol/L (98-107); Glucose 103 mg/dL (74-99); Non-African American GFR(CKD) >90 (>60 ml/min/1.73 sqM); Potassium 3.6 mmol/L (3.5-5.1); Sodium 139 mmol/L (137-145)
[2020-12-26 09:28] LABS: ALT 19 U/L (4-49); AST 26 U/L (17-59); Albumin 2.4 g/dL (3.5-5.0); Alkaline Phosphatase 103 U/L (38-126); Globulin 2.4 g/dL; Total Bilirubin 0.1 mg/dL (0.2-1.3); Total Protein 4.8 g/dL (6.3-8.2)
[2020-12-26] MEDS: PANTOPRAZOLE 40 MG/10 ML VIAL IVP SCH (12:10)
[2020-12-26] MEDS ORDERED: IPRATROPIUM 0.5 MG/2.5 ML NEBU INHALATION PRN (15:41)
[2020-12-26] MEDS ORDERED: ALBUTEROL NEBULIZED 2.5 MG/3 ML INHALATION PRN (15:41)
[2020-12-26] MEDS ORDERED: SYMBICORT 80-4.5 MCG INHALER INHALATION PRN (15:47)
--- NOTE | 2020-12-26 18:34 | PN ---
PROGRESS NOTE DATE OF SERVICE: 12/26/2020 This 65-year-old gentleman was admitted with acute UTI with sepsis. He is being closely monitored at this time. No chest pain. No palpitations. No fever. Patient is on empiric antibiotics. Patient is not feeling well at this time. Hemoglobin is 8.9. COVID-19 is negative. PAST MEDICAL HISTORY: Reviewed. REVIEW OF SYSTEMS: CARDIOVASCULAR No angina or palpitations. RESPIRATORY No cough, no hemoptysis. GI No nausea, vomiting, or diarrhea. No dysuria or hematuria. NERVOUS No numbness or weakness. CURRENT MEDICATIONS: Reviewed and include Tylenol, Maalox, Rocephin, Motrin, Narcan, Protonix. Doses reviewed. PHYSICAL EXAMINATION: Patient is alert, oriented x3. Pulse 60, blood pressure 123/82, respirations 17, temperature 98.2, pulse ox 97% on room air. HEENT: Conjunctivae normal. Oral mucosa moist. NECK: No jugular venous distention. No lymph node enlargement. CARDIOVASCULAR: S1, S2, muffled. No S3, no S4, RESPIRATORY: Diminished breath sounds at the bases. Bilateral scattered rhonchi and crackles. ABDOMEN: Soft, nontender. LEGS: No edema, no swelling. NERVOUS SYSTEM: No focal deficits. LABS: WBC 5.2, hemoglobin is 8.9, sodium 139, potassium 3.6. ASSESSMENT: 1. Acute urinary tract infection with sepsis, present on admission. 2. Hematuria, for evaluation. 3. History of recent left hip hemiarthroplasty for severe degenerative joint disease. 4. Anemia, normocytic anemia of chronic disease. 5. Hyponatremia. 6. Elevated random glucose. 7. History of hyperlipidemia. 8. History of DJD. 9. Remote history of nicotine dependence. 10.History of medical marijuana. 11.FULL CODE. RECOMMENDATIONS AND DISCUSSION: I recommend to continue current medications, symptomatic treatment. Cultures. Continue the antibiotics. The patient had nasal screening of staph which was negative before. Recommend infectious disease evaluation. Guarded prognosis. Further recommendations to follow. MMODL / IJN: [id number] /
[2020-12-26] MEDS: HEPARIN SODIUM,PORCINE/PF 5,000 UNIT/0.5 ML SYRINGE SQ SCH (20:32)
[2020-12-26] MEDS: MELATONIN 3 MG TABLET PO SCH (20:38)
--- NOTE | 2020-12-26 22:59 | P.CONS ---
History of Present Illness - Reason for Consult Consult date: 12/26/20 UTI Requesting physician: Sandra Nolan - Chief Complaint Fever and weakness x few days - History of Present Illness History of present illness : Patient is 65-year-old male presenting to the hospital last evening for evaluation of fever body aches hematuria and ur inary frequency the patient has been going on for the last few days patient recently did have left hip replacement 1 3 weeks ago and the patient did mention left hip incision is currently healed however mention he has not been feeling that great since his surgery has been feeling weak and tired and no energy patient did have a difficulty urination and noticed to have some blood in the urine has been complaining of some suprapubic discomfort more of a dull aching pain 2-3 out of 10 no radiation no flank pain some nausea but no vomiting with the symptom the patient was evaluated by ER physician on arrival to the ER the patient did have a fever of 101.2 degree form height patient did have a normal white count with a left shift creatinine was normal liver exams are normal urine was positive with large leukocyte esterase more than 1 2 WBC guillen PCR was negative patient was started on Rocephin has been admitted to the hospital infectious disease was consulted for further management of antibiotic therapy Review of system: CONSTITUTIONAL: Positive for weakness along with the fever. EYES: No complaint. ENT: No complaint. RESPIRATORY: No complaint. CARDIOVASCULAR: No complaint. GENITOURINARY: As per history of present illness. GASTROINTESTINAL: No complaint. MUSCULOSKELETAL: No complaint. INTEGUMENTARY: No complaint. PSYCHOLOGIC: No complaint. ENDOCRINE: No complaint. NEUROLOGIC: No complaint. Past medical history : Reviewed, documented below Past surgical history : Reviewed, documented below Social history: Reviewed, documented below Medications: Reviewed, as documented below GENERAL DESCRIPTION: Middle-aged male lying in bed, no distress. No tachypnea or accessory muscle of respiration use. HEENT: Shows Pallor , no scleral icterus. Oral mucous membrane is dry. NECK: Trachea central, no thyromegaly. LUNGS: Unlabored breathing. Clear to auscultation anteriorly. No wheeze or crackle. HEART: S1, S2, regular rate and rhythm. ABDOMEN: Soft, no tenderness , guarding or rigidity EXTREMITIES: No edema of feet. SKIN: No rash, no masses palpable. NEUROLOGICAL: The patient is awake, alert, oriented x3, mood and affect normal. LABS AND RADIOLOGY: Reviewed results see below Assessment : Patient presented to hospital with generalized weakness fever and chills did have difficulty in frequency of urination along with some hematuria did have significantly positive UA likely secondary to urinary tract infection likely from enteric gram-negative pathogen Plan: 1-Rocephin 1 g daily to continue 2-check ultrasound of the kidney to make sure evidence of any structural abnormality 3-gentle IV fluid We will follow on clinical condition and cultures to further adjust medication if needed Thank you for this consultation we will follow the patient along with you Past Medical History Past Medical History: Hyperlipidemia, Osteoarthritis (OA) Additional Past Medical History / Comment(s): arthritis History of Any Multi-Drug Resistant Organisms: None Reported Past Surgical History: Joint Replacement, Orthopedic Surgery Additional Past Surgical History / Comment(s): Rt shoulder surgery, neuro pain stimulator-back. Past Anesthesia/Blood Transfusion Reactions: Postoperative Nausea & Vomiting (PONV) Past Psychological History: No Psychological Hx Reported Smoking Status: Never smoker Past Alcohol Use History: None Reported Past Drug Use History: Marijuana - Past Family History Mother Family Medical History: No Reported History Medications and Allergies Home Medications Medication Instructions Recorded Confirmed Type Albuterol Inhaler [Ventolin Hfa 1 puff INHALATION DAILY PRN 11/24/20 12/25/20 History Inhaler] Fluticasone/Umeclidin/Vilanter 1 inhalation INHALATION DAILY PRN 11/24/20 12/25/20 History [Treleel Ellipta 100-62.5-25] Allergies Allergy/AdvReac Type Severity Reaction Status Date / Time morphine Allergy Vomiting Verified 12/25/20 21:38 Physical Exam Vitals: Vital Signs Temp Pulse Pulse Resp BP BP Pulse Ox 12/26/20 09:06 98 12/26/20 07:20 97.4 F L 61 17 99/63 97 12/26/20 02:15 98.8 F 64 18 85/37 97 12/25/20 23:00 98.6 F 63 16 91/49 98 12/25/20 22:16 98.2 F 66 18 90/55 99 12/25/20 20:09 101.2 F H 79 19 97/56 96 12/25/20 18:17 99.9 F H 114 H 18 95/59 97 Intake and Output 12/25/20 12/26/20 12/26/20 22:59 06:59 14:59 Intake Total 3330 Output Total 700 Balance 2630 Intake: Intake, IV Titration 3330 Amount Sodium Chloride 0.9% 1, 780 000 ml @ 130 mls/hr IV . Q7H42M [facility] Rx#:[id number] Sodium Chloride 0.9% 1, 1000 000 ml @ 999 mls/hr IV . Q1H1M ONE Rx#:[id number] Sodium Chloride 0.9% 500 500 ml 500 ml @ 1000 mls/hr IV Q35M [facility] Rx#:[id number] Sodium Chloride 0.9% 500 500 ml 500 ml @ 999 mls/hr IV .Q31M ONE Rx#:[id number] Sodium Chloride 0.9% 500 500 ml 500 ml @ 999 mls/hr IV .Q31M ONE Rx#:[id number] cefTRIAXone 1 gm In 50 Sodium Chloride 0.9% 50 ml @ 100 mls/hr IVPB Q24HR [facility] Rx#:[id number] Output: Urine 700 Other: Voiding Method Urinal # Voids 2 # Bowel Movements 0 Weight 81.647 kg 81.647 kg Results CBC & Chem 7: 12/26/20 06:48 12/26/20 06:48 Labs: Abnormal Lab Results - Last 24 Hours (Table) 12/25/20 12/25/20 12/25/20 Range/Units 18:56 18:56 20:55 RBC 3.20 L (4.30-5.90) m/uL Hgb 10.1 L D (13.0-17.5) gm/dL Hct 29.2 L (39.0-53.0) % Neutrophils # 8.9 H (1.3-7.7) k/uL Lymphocytes # 0.5 L (1.0-4.8) k/uL Sodium 134 L (137-145) mmol/L Chloride (98-107) mmol/L BUN 21 H (9-20) mg/dL Glucose 129 H (74-99) mg/dL POC Glucose (mg/dL) (75-99) mg/dL Calcium (8.4-10.2) mg/dL Total Bilirubin (0.2-1.3) mg/dL Alkaline Phosphatase 137 H (38-126) U/L Total Protein 5.8 L (6.3-8.2) g/dL Albumin 3.2 L (3.5-5.0) g/dL Urine Protein 2+ H (Negative) Urine Blood Large H (Negative) Ur Leukocyte Esterase Large H (Negative) Urine RBC 13 H (0-5) /hpf Urine WBC >182 H (0-5) /hpf Urine WBC Clumps Many H (None) /hpf Urine Bacteria Many H (None) /hpf Urine Mucus Moderate H (None) /hpf 12/26/20 12/26/20 12/26/20 Range/Units 00:20 06:48 06:48 RBC 2.82 L (4.30-5.90) m/uL Hgb 8.9 L (13.0-17.5) gm/dL Hct 27.1 L (39.0-53.0) % Neutrophils # (1.3-7.7) k/uL Lymphocytes # 0.8 L (1.0-4.8) k/uL Sodium (137-145) mmol/L Chloride 111 H (98-107) mmol/L BUN (9-20) mg/dL Glucose 103 H (74-99) mg/dL POC Glucose (mg/dL) 189 H (75-99) mg/dL Calcium 7.9 L (8.4-10.2) mg/dL Total Bilirubin 0.1 L (0.2-1.3) mg/dL Alkaline Phosphatase (38-126) U/L Total Protein 4.8 L (6.3-8.2) g/dL Albumin 2.4 L (3.5-5.0) g/dL Urine Protein (Negative) Urine Blood (Negative) Ur Leukocyte Esterase (Negative) Urine RBC (0-5) /hpf Urine WBC (0-5) /hpf Urine WBC Clumps (None) /hpf Urine Bacteria (None) /hpf Urine Mucus (None) /hpf Microbiology - Last 24 Hours (Table) 12/25/20 20:55 Urine Culture - Preliminary Urine,Clean Catch
[2020-12-27] MEDS: SODIUM CHLORIDE 0.9% 1,000 ML IV SCH ×3 (05:06→18:18)
--- NOTE | 2020-12-27 09:01 | US ---
EXAMINATION TYPE: US kidneys/renal and bladder DATE OF EXAM: 12/27/2020 COMPARISON: US 08/14/2010 CLINICAL HISTORY: uti and bacteremia. EXAM MEASUREMENTS: Right Kidney: 11.8 x 4.6 x 5.5 cm Left Kidney: 11.6 x 5.3 x 5.3 cm Right Kidney: No hydronephrosis or masses seen Left Kidney: No hydronephrosis or masses seen, partially obscured by bowel gas. Bladder: wnl Bilateral Jets seen: No IMPRESSION: 1. Normal renal ultrasound
[2020-12-27] MEDS: PANTOPRAZOLE 40 MG/10 ML VIAL IVP SCH (09:13)
[2020-12-27] MEDS: HEPARIN SODIUM,PORCINE/PF 5,000 UNIT/0.5 ML SYRINGE SQ SCH ×2 (09:13→20:25)
[2020-12-27 11:06] LABS: Basophils # (A) 0.02 X 10*3/uL (0.00-0.10); Basophils % (A) 0.5 %; Eosinophils # (A) 0.18 X 10*3/uL (0.04-0.35); Eosinophils % (A) 4.1 %; HCT 26.9 % (39.6-50.0); HGB 8.5 g/dL (13.0-17.0); Lymphocytes # (A) 1.02 X 10*3/uL (0.90-5.00); Lymphocytes % (A) 23.1 %; MCH 29.9 pg (27.0-32.0); MCHC 31.6 g/dL (32.0-37.0); MCV 94.7 fL (80.0-97.0); Mean Platelet Volume 10.7 fL (9.5-12.2); Monocytes # (A) 0.73 X 10*3/uL (0.20-1.00); Monocytes % (A) 16.6 %; Neutrophils # (A) 2.45 X 10*3/uL (1.80-7.70); Neutrophils % (A) 55.5 %; Platelet Count 193 X 10*3/uL (140-440); RBC 2.84 X 10*6/uL (4.40-5.60); RDW 14.9 % (11.5-14.5); WBC 4.41 X 10*3/uL (4.50-10.00)
[2020-12-27] MEDS: MULTIVITAMINS, THERA 1 EACH TAB PO SCH (12:21)
[2020-12-27] MEDS: DOCUSATE 100 MG CAP PO PRN (12:25)
--- NOTE | 2020-12-27 12:57 | P.CNOR ---
History of Present Illness - [facility] Consult date: 12/27/20 Consult reason: other (Recent left total hip arthroplasty) History of present illness: Patient is a 65-year-old male who was admitted to [facility] yesterday with regards to urosepsis and acute urinary tract infection. Patient noted body aches, fatigue, fever for moderate, he's had a few days of hematuria. On arrival to the hospital, lab testing demonstrated a acute UTI, he was admitted under internal medicine with infectious disease on consult. Patient had recently undergone a left total hip arthroplasty by Dr. Gerard 4 weeks ago. Patient had no acute symptoms with regards to the hip. Patient was evaluated at bedside, he is resting in his hospital bed. Patient states he is feeling pretty lousy at this time. He is not having any acute pain involving his left hip. He does have complaints involving the left knee, these have been present since initial surgery. He notices stiffness in the left knee. We did discuss this at his first postoperative visit for his left hip about 2 weeks ago. Physical therapy has been working with both the left hip and left knee. He has noted no acute changes involving the incisions of the hip or the knee. Patient denies any recent trauma, this including falls. Internal medicine and infectious using both an patient at this time. Patient does have history of multiple back surgeries. He denies any acute low back pain at this time. He denies any ani weakness in bilateral lower extremities. Denies any numbness or tingling of bilateral lower extremity is. He denies any numbness or tingling involving the perineal region or genitals. Review of Systems Constitutional: Reports as per HPI Past Medical History Past Medical History: Hyperlipidemia, Osteoarthritis (OA) Additional Past Medical History / Comment(s): arthritis History of Any Multi-Drug Resistant Organisms: None Reported Past Surgical History: Joint Replacement, Orthopedic Surgery Additional Past Surgical History / Comment(s): Rt shoulder surgery, neuro pain stimulator-back. Past Anesthesia/Blood Transfusion Reactions: Postoperative Nausea & Vomiting (PONV) Past Psychological History: No Psychological Hx Reported Smoking Status: Never smoker Past Alcohol Use History: None Reported Past Drug Use History: Marijuana - Past Family History Mother Family Medical History: No Reported History Medications and Allergies Home Medications Medication Instructions Recorded Confirmed Type Albuterol Inhaler [Ventolin Hfa 1 puff INHALATION DAILY PRN 11/24/20 12/25/20 History Inhaler] Fluticasone/Umeclidin/Vilanter 1 inhalation INHALATION DAILY PRN 11/24/20 12/25/20 History [Trelegy Ellipta 100-62.5-25] Allergies Allergy/AdvReac Type Severity Reaction Status Date / Time morphine Allergy Vomiting Verified 12/25/20 21:38 Physical Examination Left lower extremity: Incision is well-healed over the proximal anterior lateral aspect of the hip, there is no erythema present. There is no areas of fluctuance appreciated. Incision over the left knee is well-healed at this time. There is no erythema noted surrounding the knee, there is no effusion appreciated on exam. Patient has some generalized discomfort in the left hip region with range of motion, typical to C4 weeks post left total hip arthroplasty. Passive range of motion of the left hip both with flexion, internal and external rotation reproduces no significant pain. Range of motion of the knee was very difficult to assess, the patient is very rigid on exam. He lacks about 20 of motion with regards to extension, he can flex to about 95-100. Passive range of motion of the knee does not reproduce any severe pain. The calf is soft, no tenderness with palpation. Plantar flexion, dorsiflexion, EHL, FHL are intact Sensory exam light touch at the extremities intact, posterior cells pedis pulses 2+ Again noting patient's rigid stature with regards to left lower extremity, including muscles in the upper and lower leg Results - Labs Labs: Abnormal Lab Results - Last 24 Hours (Table) 12/26/20 12/26/20 12/26/20 Range/Units 16:07 16:07 16:07 WBC (4.50-10.00) X 10*3/uL RBC (4.40-5.60) X 10*6/uL Hgb (13.0-17.0) g/dL Hct (39.6-50.0) % MCHC (32.0-37.0) g/dL RDW (11.5-14.5) % ESR 83 H (0-15) mm/hr D-Dimer 2.49 H (<0.60) mg/L FEU C-Reactive Protein 18.9 H (<1.0) mg/dL 12/27/20 Range/Units 07:11 WBC 4.41 L (4.50-10.00) X 10*3/uL RBC 2.84 L (4.40-5.60) X 10*6/uL Hgb 8.5 L (13.0-17.0) g/dL Hct 26.9 L (39.6-50.0) % MCHC 31.6 L (32.0-37.0) g/dL RDW 14.9 H (11.5-14.5) % ESR (0-15) mm/hr D-Dimer (<0.60) mg/L FEU C-Reactive Protein (<1.0) mg/dL Microbiology - Last 24 Hours (Table) 12/25/20 20:55 Urine Culture - Preliminary Urine,Clean Catch Gram Neg Bacilli 12/25/20 18:56 Blood Culture - Preliminary Blood No Growth after 24 hours 12/25/20 18:41 Blood Culture - Preliminary Blood No Growth after 24 hours H & H 12/25/20 12/26/20 12/27/20 Range/Units 18:56 06:48 07:11 Hgb 10.1 L D 8.9 L 8.5 L (13.0-17.5) gm/dL Hct 29.2 L 27.1 L 26.9 L (39.0-53.0) % Coagulation 12/25/20 Range/Units 18:56 INR 1.0 (<1.2) Result Diagrams: 12/27/20 07:11 12/26/20 06:48 Assessment and Plan Assessment: Urinary tract infection, urosepsis Recent direct anterior left total hip arthroplasty 11/28/2020 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 Gerard. No emergent orthopedic surgical intervention recommended at this time Recommend continuation of IV antibiotic treatment for the urinary tract infection, this including infectious disease and internal medicine recommendations. Recommend trending CRP and sed rate levels Depending on how patient's symptoms and labs progress, may consider aspiration of left hip. Would consult interventional radiology to help with this. Currently patient showing no acute signs of a periprosthetic hip or knee infection at this time. Patient's left knee symptoms have been chronic since the surgery, would recommend follow-up in the outpatient setting to discuss further surgical options Weight-bear as tolerated with walker Encourage incentive spirometer GI and DVT prophylaxis per primary medical service Further recommendations to follow, we'll continue to follow during inpatient stay Time with Patient: Less than 30
--- NOTE | 2020-12-27 13:57 | PN ---
PROGRESS NOTE DATE OF SERVICE: 12/27/2020 REASON FOR FOLLOWUP: Urinary tract infection. INTERVAL HISTORY: The patient is afebrile. The patient is breathing better today, breathing comfortably. Denies having any chest pain, shortness of breath or cough. No nausea, no vomiting. No abdominal pain or diarrhea. PHYSICAL EXAMINATION: Blood pressure 143/72 with a pulse of 68, temperature 98.2. He is 98% on room air. GENERAL DESCRIPTION: General description is a middle-aged male up in the bed in no distress. RESPIRATORY SYSTEM: Unlabored breathing. Clear to auscultation anteriorly. HEART: S1, S2. Regular rate and rhythm. ABDOMEN: Soft. No tenderness. LABS: Hemoglobin 8.5, white count 4.41. CRP is 18.9. Urine is showing Gram-negative. Blood culture has been negative. DIAGNOSTIC IMPRESSION AND PLAN: Patient with Gram-negative urinary tract infection. Patient clinically responding to Rocephin; to continue. Ultrasound was negative for any structural abnormality. Discharge antibiotic on the basis of the culture report. Continue supportive care. MMODL / IJN: [id number] /
--- NOTE | 2020-12-27 14:16 | XR ---
EXAMINATION TYPE: XR chest 1V portable DATE OF EXAM: 12/27/2020 COMPARISON: To 117 INDICATION: CHF TECHNIQUE: Single frontal view of the chest is obtained. FINDINGS: The heart size is normal. The pulmonary vasculature is normal. The lungs are clear. Stimulator leads are within the mid thoracic region. Spondylosis 2 scoliotic thoracic spine. IMPRESSION: 1. No acute pulmonary process.
[2020-12-27 14:51] LABS: African American GFR (CKD) 109.4 (60.0-200.0); Non-African American GFR(CKD) 94.4 (60.0-200.0)
--- NOTE | 2020-12-27 14:54 | US ---
EXAMINATION TYPE: US venous doppler duplex LE DATE OF EXAM: 12/27/2020 2:16 PM COMPARISON: NONE CLINICAL HISTORY: dvt. Sepsis, post left hip replacement 4 weeks ago; left thigh tightness SIDE PERFORMED: Bilateral TECHNIQUE: The lower extremity deep venous system is examined utilizing real time linear array sonog taryn with graded compression, doppler sonography and color-flow sonography. VESSELS IMAGED: Common Femoral Vein Deep Femoral Vein Greater Saphenous Vein * Femoral Vein Popliteal Vein Small Saphenous Vein * Proximal Calf Veins (* superficial vessels) Right Leg: Negative for DVT Left Leg: Negative for DVT No suspicious subcutaneous collections are evident on the images provided. IMPRESSION: 1. Bilateral lower extremity ultrasound negative for deep venous thrombosis.
--- NOTE | 2020-12-27 15:09 | PN ---
PROGRESS NOTE DATE OF SERVICE: 12/27/2020 This 65-year-old gentleman was admitted with possible sepsis and UTI, had gram-negative bacilli growing from the culture. The patient is feeling slightly better. The patient is on Rocephin. Infectious Disease is following the patient closely. No chest pain. No palpitations. No fever. Orthopedics surgery has also seen the patient because of the recent hip surgery. Recommend to continue current treatment. Abdominal and bladder ultrasound was done which showed no abnormality. No fever, no cough. PHYSICAL EXAMINATION: Alert and oriented x3. Pulse is 68, blood pressure 140/72, respiration 14, temperature 98.2, pulse ox 98% on room air. HEENT: Conjunctivae normal. Oral mucosa moist. NECK: No jugular venous distention. No lymph node enlargement. CARDIOVASCULAR: S1, S2, muffled. No S3, no S4, RESPIRATORY: Diminished breath sounds at the bases. No rhonchi and no crackles. ABDOMEN: Soft. LEGS: Status post surgery. NERVOUS SYSTEM: No focal deficits. LABS: WBC 4.4, hemoglobin is 8.5. D-dimer is 2.49. ASSESSMENT: 1. Acute urinary tract infection with sepsis, present on admission. 2. Hematuria, for evaluation. 3. History of recent left total knee arthroplasty for severe degenerative joint disease. 4. Anemia, normocytic anemia of chronic disease. 5. Hyponatremia. 6. Elevated random glucose. 7. History of hyperlipidemia. 8. History of DJD. 9. Remote history of nicotine dependence. 10.History of medical marijuana. 11.FULL CODE. RECOMMENDATIONS AND DISCUSSION: I recommend to continue current medications, symptomatic treatment. Otherwise, continue the antibiotics. Await final ID. Guarded prognosis. Continue the rest of medications. D-dimer was elevated. ESR is also elevated. I would await the culture reports and continue to monitor.. The patient is not hypoxic, I would recommend an ultrasound of the leg also and chest x-ray also to complete the workup. MMODL / IJN: [id number] /
[2020-12-27] MEDS: MELATONIN 3 MG TABLET PO SCH (20:26)
[2020-12-28] MEDS: SODIUM CHLORIDE 0.9% 1,000 ML IV SCH ×2 (03:20→09:25)
[2020-12-28] MEDS: DOCUSATE 100 MG CAP PO PRN (09:18)
[2020-12-28] MEDS: PANTOPRAZOLE 40 MG TABLET PO SCH (09:19)
[2020-12-28] MEDS: HEPARIN SODIUM,PORCINE/PF 5,000 UNIT/0.5 ML SYRINGE SQ SCH ×2 (09:19→19:22)
--- NOTE | 2020-12-28 10:18 | P.PN ---
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 He seems to be doing a lot better today. He states he feels a lot better compared to last few days. He was able to sleep through the night with no difficulties. He is having no acute changes with regards to his left hip or left knee. Denies any fevers or chills at this time. Objective - Vital Signs Vital signs: Vital Signs Temp 98.0 F 12/28/20 08:00 Pulse 80 12/28/20 08:00 Resp 14 12/28/20 08:00 BP 120/67 12/28/20 08:00 Pulse Ox 97 12/28/20 08:00 Intake & Output 12/27/20 12/28/20 12/28/20 18:59 06:59 18:59 Intake Total 1180 Output Total 1580 580 Balance -400 -580 Intake: Oral 1180 Output: Urine 1580 580 Other: Voiding Method Urinal Urinal - Exam Left lower extremity: Incision is well-healed over the proximal anterior lateral aspect of the hip, there is no erythema present. There is no areas of fluctuance appreciated. Incision over the left knee is well-healed at this time. There is no erythema noted surrounding the knee, there is no effusion appreciated on exam. Patient has some generalized discomfort in the left hip region with range of motion, typical for 4 weeks post left total hip arthroplasty. Passive range of motion of the left hip both with flexion, internal and external rotation reproduces no significant pain. He was noted to be utilizing a workout strap in the room today. His knee lacked about 3 of extension, and he was also able to flex to 110. Passive range of motion of the knee does not reproduce any severe pain. The calf is soft, no tenderness with palpation. Plantar flexion, dorsiflexion, EHL, FHL are intact Sensory exam light touch at the extremities intact, dorsalis pedis pulses 2+ - Labs CBC & Chem 7: 12/27/20 07:11 12/27/20 07:11 Labs: Abnormal Lab Results - Last 24 Hours (Table) 12/27/20 12/27/20 Range/Units 07:11 07:11 WBC 4.41 L (4.50-10.00) X 10*3/uL RBC 2.84 L (4.40-5.60) X 10*6/uL Hgb 8.5 L (13.0-17.0) g/dL Hct 26.9 L (39.6-50.0) % MCHC 31.6 L (32.0-37.0) g/dL RDW 14.9 H (11.5-14.5) % Chloride 113 H (96-109) mmol/L Carbon Dioxide 21.0 L (21.6-31.8) mmol/L Calcium 8.0 L (8.7-10.3) mg/dL Microbiology - Last 24 Hours (Table) 12/25/20 18:41 Blood Culture - Preliminary Blood No Growth after 48 hours 12/25/20 18:56 Blood Culture - Preliminary Blood No Growth after 48 hours 12/25/20 20:55 Urine Culture - Preliminary Urine,Clean Catch Gram Neg Bacilli Assessment and Plan Assessment: Urinary tract infection, urosepsis Recent direct anterior left total hip arthroplasty 11/28/2020 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 No further workup recommended at that time with regards to left hip pain. Recommend continuation of IV antibiotic treatment for the urinary tract infection, this including infectious disease and internal medicine recommendations. Awaiting CRP and sed rate labs Weight-bear as tolerated with walker Encourage incentive spirometer GI and DVT prophylaxis per primary medical service We'll continue to follow during inpatient stay Time with Patient: Less than 30
[2020-12-28] MEDS: MULTIVITAMINS, THERA 1 EACH TAB PO SCH (12:02)
--- NOTE | 2020-12-28 12:39 | PN ---
PROGRESS NOTE DATE OF SERVICE: 12/28/2020 REASON FOR FOLLOWUP: Urinary tract infection. INTERVAL HISTORY: The patient is afebrile. The patient is feeling better, breathing comfortably. Denies having any chest pain, shortness of breath or cough. No abdominal pain or diarrhea. PHYSICAL EXAMINATION: Blood pressure is 120/67, pulse of 80, temperature 98. He is 97% on room air. GENERAL DESCRIPTION: General description is a middle-aged male lying in bed in no distress. RESPIRATORY SYSTEM: Unlabored breathing. Clear to auscultation anteriorly. HEART: S1, S2. Regular rate and rhythm. ABDOMEN: Soft. No tenderness. LABS: Urine showing Klebsiella. DIAGNOSTIC IMPRESSION AND PLAN: Patient with Klebsiella urinary tract infection, overall improvement on Rocephin. To finish therapy with oral Cipro 500mg bid x 10 days , discussed with the nurse practitioner for the admitting team working on discharge. MMODL / IJN: [id number] / MTDD
--- NOTE | 2020-12-28 15:02 | PN ---
PROGRESS NOTE DATE OF SERVICE: 12/28/2020 This 65-year-old gentleman admitted with acute UTI with sepsis is being closely monitored. The patient is on IV antibiotics. The culture showed Klebsiella oxytoca. Multiple consultants are following the patient. The patient is on IV antibiotics. Past medical history reviewed. REVIEW OF SYSTEMS: CARDIOVASCULAR SYSTEM: No angina. RESPIRATION: ntd GI: As mentioned earlier. : As mentioned earlier. NERVOUS SYSTEM: No numbness, weakness. CURRENT MEDICATIONS: Reviewed. They include Tylenol, Maalox, Ventolin, Symbicort, Rocephin, Motrin, melatonin, Narcan. PHYSICAL EXAMINATION: Patient alert and oriented x3. Pulse 62, blood pressure 144/72, respirations 12, temperature 98 degrees, pulse ox 97% on room air. HEENT: Conjunctivae normal. NECK: No jugular venous distention. CARDIOVASCULAR: S1, S2 muffled. RESPIRATION: Breath sounds diminished at the bases. A few rhonchi. ABDOMEN: Soft, nontender. LEGS: Status post left hip arthroplasty. NERVOUS SYSTEM: Mild diffuse weakness. No focal deficit. LABS: ESR is 83 and D-dimer is 2.49 and WBC 4.4, hemoglobin 8.5. C-reactive protein is . ASSESSMENT: 1. Acute urinary tract infection with sepsis, Klebsiella oxytoca, present on admission. 2. Hematuria, for evaluation. 3. History of recent left total hip arthroplasty for severe degenerative joint disease. 4. Anemia, normocytic anemia, anemia of chronic disease. 5. Hyponatremia. 6. Elevated random glucose. 7. Elevated hyperlipidemia. 8. Elevated D-dimer and CRP and ESR. 9. History of degenerative joint disease. 10.Remote history of nicotine dependence. 11.History of medical marijuana. 12.FULL CODE. RECOMMENDATIONS AND DISCUSSION: I recommend to continue current medications, continue with symptomatic treatment. Continue with IV antibiotics. Closely follow with Infectious Disease. Prognosis extremely guarded because of multiple complex medical issues and sepsis as mentioned above. This 65-year-old gentleman with significant medical complications, including UTI with sepsis, was extremely sick during the hospitalization. During the beginning we presumed that the patient would be here for more than 2 nights, requiring inpatient full admission. The patient could never be managed as an outpatient observation because of the multiple complex medical issues which are life-threatening, as mentioned earlier. Despite multiple calls from the case management team and review service, as a treating physician I believe that the patient needs full inpatient admission which COULD NOT BE managed as an outpatient because we are dealing with a UTI with sepsis in a seriously sick individual, whom I saw clinically in the beginning at least 3 days with some improvement with IV antibiotics. In fact, the procedure of keeping the patient inpatient and giving a full course of IV antibiotics might also save some money in alleviating multiple ER visits and multiple other outpatient evaluations. In any case, the prognosis is extremely guarded, and once again the patient requires full inpatient hospitalization because of the medical necessity and significant medical illnesses, in my opinion. There is no way I can discharge this sick patient without proper eval and treatment. Please refer to the previous dictations and previous consultation for further report. A copy of this dictation is being forwarded to Dr. Nelson, who recommended that the patient come to the hospital immediately after being contacted as an outpatient. SHAINA / TRAV: [id number] / MTDD
[2020-12-28] MEDS: MELATONIN 3 MG TABLET PO SCH (19:22)
[2020-12-29 00:53] VITALS: TEMP 98.4
[2020-12-29] MEDS: SODIUM CHLORIDE 0.9% 1,000 ML IV SCH (00:55)
[2020-12-29 07:46] VITALS: BP 149/81; PULSE 69; RESP 18
[2020-12-29] MEDS: HEPARIN SODIUM,PORCINE/PF 5,000 UNIT/0.5 ML SYRINGE SQ SCH (09:25)
[2020-12-29] MEDS: PANTOPRAZOLE 40 MG TABLET PO SCH (09:25)
--- NOTE | 2020-12-29 12:43 | P.PN ---
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 He is having no acute changes with regards to his left hip or left knee. Denies any fevers or chills at this time. Objective - Vital Signs Vital signs: Vital Signs Temp 98.4 F 12/29/20 07:44 Pulse 69 12/29/20 07:44 Resp 18 12/29/20 07:44 BP 149/81 12/29/20 07:44 Pulse Ox 96 12/29/20 07:44 Intake & Output 12/28/20 12/29/20 12/29/20 18:59 06:59 18:59 Output Total 580 900 Balance -580 -900 Output: Urine 580 900 Other: Voiding Method Toilet # Voids 3 2 # Bowel Movements 0 - Exam Left lower extremity: Incision is well-healed over the proximal anterior lateral aspect of the hip, there is no erythema present. There is no areas of fluctuance appreciated. Incision over the left knee is well-healed at this time. There is no erythema noted surrounding the knee, there is no effusion appreciated on exam. Patient has some generalized discomfort in the left hip region with range of motion, typical for 4 weeks post left total hip arthroplasty. Passive range of motion of the left hip both with flexion, internal and external rotation reproduces no significant pain. He was noted to be utilizing a workout strap in the room today. His knee lacked about 3 of extension, and he was also able to flex to 110. Passive range of motion of the knee does not reproduce any severe pain. The calf is soft, no tenderness with palpation. Plantar flexion, dorsiflexion, EHL, FHL are intact Sensory exam light touch at the extremities intact, dorsalis pedis pulses 2+ - Labs CBC & Chem 7: 12/27/20 07:11 12/27/20 07:11 Labs: Abnormal Lab Results - Last 24 Hours (Table) 12/28/20 Range/Units 08:02 ESR 75 H (0-20) mm/Hr Microbiology - Last 24 Hours (Table) 12/25/20 18:41 Blood Culture - Preliminary Blood No Growth after 72 hours 12/25/20 18:56 Blood Culture - Preliminary Blood No Growth after 72 hours 12/25/20 20:55 Urine Culture - Final Urine,Clean Catch Klebsiella oxytoca Assessment and Plan Assessment: Urinary tract infection, urosepsis Recent direct anterior left total hip arthroplasty 11/28/2020 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 No further workup recommended at that time with regards to left hip pain. CRP and SED rate levels are decreasing Weight-bear as tolerated with walker Encourage incentive spirometer GI and DVT prophylaxis per primary medical service Plan for follow up in office in 2 weeks for recheck Time with Patient: Less than 30
--- NOTE | 2020-12-29 13:11 | P.PN ---
Progress Note - Text Progress Note Date: 12/29/20 REASON FOR FOLLOWUP: Urinary tract infection. INTERVAL HISTORY: The patient remains to be afebrile. The patient is feeling better,pt is breathing comfortably. Denies having any chest pain, shortness of breath or cough. No abdominal pain or diarrhea. PHYSICAL EXAMINATION: Blood pressure is 125/60, pulse of 80, temperature 98. He is 97% on room air. GENERAL DESCRIPTION: General description is a middle-aged male lying in bed in no distress. RESPIRATORY SYSTEM: Unlabored breathing. Clear to auscultation anteriorly. HEART: S1, S2. Regular rate and rhythm. ABDOMEN: Soft. No tenderness. LABS: Urine showing Klebsiella sensitive to cipro and rocephin. DIAGNOSTIC IMPRESSION AND PLAN: Patient with Klebsiella urinary tract infection, overall improvement on Rocephin. To finish therapy with oral Cipro 500mg bid x 10 days and close outpatient follow up
--- NOTE | 2020-12-29 18:09 | DS ---
DISCHARGE SUMMARY DATE OF SERVICE: 12/29/2020 FINAL DIAGNOSES: 1. Acute urinary tract infection with Klebsiella oxytoca with sepsis present on admission. 2. Hematuria, improved. 3. History of recent total hip arthroplasty for severe degenerative joint disease. 4. Anemia, normocytic anemia of chronic disease. 5. Hyponatremia. 6. Elevated random glucose. 7. Hyperlipidemia. 8. Elevated D-dimer and CRP ESR. 9. History of degenerative joint disease. 10.Remote history of nicotine dependence. 11.History of medical marijuana. 12.FULL CODE. DISCHARGE DISPOSITION: The patient being discharged in stable condition with guarded prognosis. HISTORY OF PRESENT ILLNESS: This 65-year-old gentleman with a past medical history of multiple medical problems admitted with UTI with sepsis. The patient is extremely sick and was treated with IV antibiotics. The patient needed full inpatient hospitalization from the very beginning of the admission and fortunately the patient responded to antibiotic as of now and the patient improved significantly. Culture showing Klebsiella oxytoca. On exam, vitals signs stable. Cardiovascular: S1, S2. Abdomen soft. Nervous system: No focal deficits. DISCHARGE ADVICE AND MEDICATIONS: 1. Diet is cardiac diet. 2. Activity limited until followup. 3. Follow up with Dr. Nelson in 2-3 days. 4. Follow up with Orthopedics as advised. DISCHARGE MEDICATIONS: 1. Fluticasone. 3. Ventolin as before. 4. Cipro 500 mg p.o. b.i.d. for 10 days. 5. Multivitamins 1 p.o. daily. 6. Motrin p.r.n. 7. Tylenol p.r.n. Once again, the patient being discharged in stable condition. Guarded prognosis. Once again, the PATIENT DOES REQUIRE FULL INPATIENT ADMISSION TO DIAGNOSE, ELUCIDATE AND MANAGE THE ABOVE MENTIONED MULTIPLE COMPLEX MEDICAL ISSUES INCLUDING SEVERE SEPSIS. MMODL / IJN: [id number] / DANIEL
== END 2020-12-29 12:40 | disposition home or self-care (01) ==
LOC: EC 18:02 → INTOOBSV 21:40 → 4SSUR 21:40 → UNDODISIN 12-29 12:40
PROVIDERS: ADMIT Hospitalist; ATTEND Hospitalist
DX: A41.59 Other Gram-negative sepsis (principal); N39.0 Urinary tract infection, site not specified; R31.9 Hematuria, unspecified; D63.8 Anemia in other chronic diseases classified elsewhere; E87.1 Hypo-osmolality and hyponatremia; E78.5 Hyperlipidemia, unspecified; M19.90 Unspecified osteoarthritis, unspecified site; R19.7 Diarrhea, unspecified; E86.0 Dehydration; Z20.822 Contact with and (suspected) exposure to COVID-19; Z87.891 Personal history of nicotine dependence; Z96.642 Presence of left artificial hip joint; Z96.652 Presence of left artificial knee joint; Z79.899 Other long term (current) drug therapy; Z79.82 Long term (current) use of aspirin; Z88.5 Allergy status to narcotic agent; Z79.51 Long term (current) use of inhaled steroids; Z53.29 Procedure and treatment not carried out because of patient's decision for other reasons
CPT/HCPCS: 96376; 96361 ×2; 96366 ×2; 96372 ×4; 96375; 96365; 99285; 36415; 93005 ×2; 97116; 97162; 97530; 97166; 85379; 80053 ×2; 80048; 85652 ×2; 83605 ×2; 84484; 85025 ×3; 85610; 85730; 86140 ×2; 81001; 87040; 87086; 87077; 87186; 87635; 71045; 76770; 93970; G0378 ×5; J2405; J0696 ×5; C9113 ×2; J1644 ×4; 96360

== ENCOUNTER 2023-11-08 11:46 | Day surgery (SDC) | payer MEDICARE ==
[2023-11-06 14:34] VITALS: BMI 22.4
[2023-11-08] MEDS: LACTATED RINGERS 1,000 ML IV SCH (12:31)
[2023-11-08] MEDS: IV FLUID CONTINUATION 1,000 ML IV ONE (12:33)
[2023-11-08 12:36] VITALS: TEMP 97.9
[2023-11-08] MEDS ORDERED: PROPOFOL 10 MG/ML 20 ML VIAL IV ONE (12:53)
--- NOTE | 2023-11-08 13:18 | P.PCN ---
Date of Procedure: 11/08/23 Procedure(s) Performed: BRIEF HISTORY: Patient is a 68-year-old pleasant white male scheduled for an elective colonoscopy as a part of evaluation of prior history of colon polyps. PROCEDURE PERFORMED: Colonoscopy. PREOPERATIVE DIAGNOSIS: History of colon polyps. IV sedation per Anesthesia. PROCEDURE: After informed consent was obtained, the patient, was brought into the endoscopy unit. IV sedation was administered by Anesthesia under continuous monitoring. Digital rectal examination was normal. Initially the Olympus CF-160 flexible video colonoscope was then inserted in the rectum, gradually advanced into the cecum without any difficulty. Careful examination was performed as the scope was gradually being withdrawn. Ileocecal valve and the appendiceal orifice were visualized and appeared normal. Prep was excellent. Mucosa of the cecum, ascending colon, transverse colon, descending colon, sigmoid colon, and rectum appeared normal. Scattered sigmoid diverticulosis. Retroflexion was performed in the rectum and no lesions were seen. The patient tolerated the procedure well. IMPRESSION: Normal-appearing colon from rectum to cecum with no evidence of colorectal neoplasia Scattered sigmoid diverticulosis RECOMMENDATIONS: Findings of this examination were discussed with the patient as well as his family. He was advised to have repeat screening colonoscopy in 10 years..
[2023-11-08 13:49] VITALS: BP 112/80; PULSE 73; RESP 16
== END 2023-11-08 14:04 | disposition home or self-care (01) ==
LOC: ORWHC2ENDO 11:46
PROVIDERS: ATTEND Internal Medicine Gastroenterology
DX: Z12.11 Encounter for screening for malignant neoplasm of colon (principal); K57.30 Diverticulosis of large intestine without perforation or abscess without bleeding; I10 Essential (primary) hypertension; E78.5 Hyperlipidemia, unspecified; J44.9 Chronic obstructive pulmonary disease, unspecified; Z87.891 Personal history of nicotine dependence; Z79.51 Long term (current) use of inhaled steroids; Z79.899 Other long term (current) drug therapy; Z88.5 Allergy status to narcotic agent; Z86.010 Personal history of colon polyps
CPT/HCPCS: 45378; J2704

== ENCOUNTER → 2024-11-06 | Outpatient (CLI) | payer MEDICARE ==
--- NOTE | 2024-11-06 10:23 | CTL ---
EXAMINATION TYPE: CT Low Dose Lung DATE OF EXAM ORDERED: 11/06/2024 COMPARISON: CT Low Dose Lung 11/26/2019 CLINICAL INDICATION: Male, 69 years old with history of Z12.2, Z87.891; PHH, History of nicotine depe ndence., Lung cancer screening, History of Smoking/tobacco use. TECHNIQUE: Low dose computed tomography scan was performed through the chest at 1 mm thick sections a nd reconstructed images in multiple planes at 1 mm and [address] DLP: 101.[address] CTDI: 2.5 mGy Automated exposure control for dose reduction was used. CT DIAGNOSTIC QUALITY: Satisfactory FINDINGS: Nodules: Stable peripheral left upper lobe 2.2 mm pulmonary nodule (series 6, image 39). Stable right anterior midlung 5 mm pulmonary nodule along the right minor fissure (series 6, image 39 ). LUNGS: COPD: Severity: Mild Fibrosis: Severity: None Lymph nodes: None Other findings: Mild linear atelectasis and/or scarring within the bilateral lower lobes. RIGHT PLEURAL SPACE: Effusion: None Calcification: None Thickening: None Pneumothorax: None LEFT PLEURAL SPACE: Effusion: None Calcification: None Thickening: None Pneumothorax: None HEART: Heart Size: Normal Coronary Calcification: Moderate Pericardial Effusion: None OTHER FINDINGS: Upper abdomen: None Bony thorax: Mild S-shaped scoliotic curvature of the visualized thoracolumbar spine. Partial visuali zation of anterior cervical fusion hardware. Multilevel degenerative changes of the visualized spine. Spinal stimulator leads identified entering the spinal canal at the T11-T12 interspinous space and e xtending into the thoracic spinal canal terminating at the T7 vertebral body level. Supraclavicular region: None Other: Mild atherosclerotic calcification of the aorta and its branches. IMPRESSION: 1. Couple of stable pulmonary nodules dating back to 2019. No definitive new or enlarging pulmonary nodules. 2. Mild emphysematous change. CT LUNG RAD AND CT CHEST RECOMMENDATION: Lung-Rad 2 Benign Appearance or Behavior: Continue annual sc reening with LDCT in 12 months. S Modifier (other clinically significant findings): None [facility], , 11/06/2024 10:21 AM
== END | disposition home or self-care (01) ==
LOC: RADCTMAIN 08:40
PROVIDERS: ATTEND Family Medicine
DX: Z12.2 Encounter for screening for malignant neoplasm of respiratory organs (principal); Z87.891 Personal history of nicotine dependence; R91.8 Other nonspecific abnormal finding of lung field; J43.9 Emphysema, unspecified
CPT/HCPCS: 71271